=== PATIENT | male | born 1930 | race Asian ===

== ENCOUNTER 2019-09-01 15:24 | Inpatient (IN) | payer MEDICARE, OTHER ==
[~2019-09-01] VITALS: Ht 165.1 cm; Wt 70.8 kg
--- NOTE | 2019-09-01 15:35 | NUR ---
MICHELLE FROM HOME TO ER BED 12. ALERT AND AWAKE. MONGOLIAN SPEAKING. ABLE TO FOLLOW SIMPLE COMMAND. BROUGHT IN FOR MEDICAL CLEARANCE FOR ADMISSION FOR GPS. PER 5150 HOLD, PT IS DANGER TO SELF WITH SUICIDAL THOUGHT W/ PLAN TO SHOOT HIMSELF. PT IS REPORTED TO BE DEPRESSED. PT IS GOWNED AND BELONGINGS KEPT IN LOCKER. 1:1 SITTER AT BEDSIDE. MD WAS AT THE BEDSIDE FOR EVAL ORDERS RECEIVED NOTED AND CARRIED OUT
--- NOTE | 2019-09-01 15:37 | NUR ---
GREASE MAN AT BEDSIDE FOR EVAL
--- NOTE | 2019-09-01 15:40 | NUR ---
URINE COLLECTED AND SENT TO LAB
[2019-09-01 15:46] LABS: BASOPHILS % (AUTO) 0.3 % (0.0-2.0); HEMATOCRIT 35 % (39-51); HEMOGLOBIN 11.8 g/dL (13.5-17.5); LYMPHOCYTES # (AUTO) 2.2 /CMM (0.8-4.8); LYMPHOCYTES % (AUTO) 25.1 % (20.0-44.0); MEAN CORPUSCULAR HGB CONC 34 g/dl (31.0-36.0); MEAN CORPUSCULAR VOLUME 92 fL (80-96); MONOCYTES # (AUTO) 0.7 /CMM (0.1-1.30); MONOCYTES % (AUTO) 8.2 % (2.0-12.0); NEUTROPHILS # (AUTO) 5.4 /CMM (1.8-8.9); NEUTROPHILS % (AUTO) 62.4 % (43.0-81.0); PLATELET COUNT (AUTO) 295 /CMM (150-450); RED BLOOD CELL COUNT(AUTO) 3.77 MIL/uL (4.5-6.0); WHITE BLOOD COUNT (AUTO) 8.7 K/uL (4.3-11.0)
[2019-09-01 15:52] LABS: APPEARANCE,URINE Clear (CLEAR); BILIRUBIN,URINE Negative (NEGATIVE); BLOOD, URINE Negative Ery/uL (NEGATIVE); COLOR,URINE Yellow (YELLOW); KETONES,URINE Negative (NEGATIVE); LEUKOCYTE ESTERASE ,URINE Negative (NEGATIVE); NITRITE, URINE Negative (NEGATIVE); PH,URINE 7.5 (5.0-8.0); PROTEIN,URINE Negative (NEGATIVE); UGLUCOSE Negative (NEGATIVE); UROBILINOGEN,URINE 0.2 EU/dL (0.2)
[2019-09-01 15:55] LABS: CALCIUM, SERUM 11.3 mg/dL (8.5-10.1); CARBON DIOXIDE 38 mmol/L (21-32); CHLORIDE 102 mmol/L (98-107); GLUCOSE 164 mg/dL (74-106); SODIUM SERUM 140 mmol/L (136-145); UREA NITROGEN, BLOOD 10 mg/dL (7-18)
[2019-09-01] MEDS ORDERED: POTASSIUM CHLORIDE 20 MEQ TAB.PRT.SR PO ONE ×2 (16:00→16:05)
[2019-09-01 16:06] LABS: ALANINE AMINOTRANSFERASE 13 U/L (12-78); ALBUMIN 2.7 g/dL (3.4-5.0); ALCOHOL, BLOOD < 3 mg/dL (0-0); ALKALINE PHOSPHATASE 96 U/L (46-116); ASPARTATE AMINOTRANSFERASE 14 U/L (15-37); BILIRUBIN,DIRECT 0.2 mg/dL (0.0-0.2); BILIRUBIN,TOTAL 0.4 mg/dL (0.2-1.0); TOTAL PROTEIN, SERUM 6.7 g/dL (6.4-8.2)
[2019-09-01 16:07] LABS: ACETAMINOPHEN < 2 ug/ml (10-30); SALICYLATE < 2.8 mg/dL (2.8-20.0)
--- NOTE | 2019-09-01 17:08 | NUR ---
COVID SWAB DONE AND SENT TO LAB
--- NOTE | 2019-09-01 18:18 | NUR ---
GOT BED 220-B
--- NOTE | 2019-09-01 18:35 | NUR ---
REPORT GIVEN TO SAIDA ACUÑA FROM GPS FOR THIEN
--- NOTE | 2019-09-01 18:39 | NUR ---
PT TRANPORTED TO UNIT ON [facility] WITH EMT AT BEDSIDE. PT IS IN STABLE CONDITION. NAD NOTED.
--- NOTE | 2019-09-01 19:00 | NUR ---
GPS MOBILE PAINT SPECIALIST NOTES: ADMITTED AN 88YO AZERI SPEAKING MALE WHO INITIALLY CAME FROM HOME AND WAS BROUGHT INTO [facility] ER. PATIENT IS ON A HOLD FOR FOR DANGER TO SELF.PER HOLD PATIENT WAS MADE SUICIDAL THREATS WITH A PLAN TO SHOOT HIMSELF WITH HIS OWN GUN. PATIIENT WILL BE UNDER THE CARE OF DR. LOPEZ AND LUIS AYALA, TRISHA FOR THE [facility] MEDICAL GROUPD AND PSYCH AND MEDICAL DOCTORS RESPECTIVELY. PATIENT WAS BROUGHT INTO THE UNIT DURING CHANGE OF SHIFT. UPON FACE TO FACE ASSESSMENT,PATIENT PRESENTS ALERT AND ORIENTED X1, SPEAKS MOSTLY AZERI AND LESS OF THE SLOVAK LANGUAGE, APPEARS CONFUSED, DISORGANIZED , UNKEMPT, DISHEVELED, APPEARS LOST. REALITY ORIENTATION DONE. SKIN AND BODY ASSESSMENT DONE. NO OPEN WOUND OR SKIN ISSUES NOTED THIS TIME. GUIDE TO PRESCRIPTION MEDICATIONS BOOK AND PATIENT'S RIGHTS HANDBOOK PROVIDED. Q15 MIN CHECKS INITIATED. CARE PLAN SPECIFIC TO PATIENT'S NEEDS THE FORMULATED. PROVIDED PATIENT WITH SOME SNACKS TOLERATED. WILL MONITOR PATIENT FOR MOOD, SAFETY AND BEHAVIOR WHILE INPATIENT.
[2019-09-01] MEDS ORDERED: ACETAMINOPHEN 325 MG TABLET PO PRN (19:30)
[2019-09-01] MEDS ORDERED: MAG HYDROX/AL HYDROX/SIMETH 30 ML UDC PO PRN (19:30)
[2019-09-01] MEDS ORDERED: LORAZEPAM 0.5 MG TABLET PO PRN (19:30)
[2019-09-01] MEDS ORDERED: MAGNESIUM HYDROXIDE 30 ML UDC PO PRN (19:30)
[2019-09-01] MEDS ORDERED: ATOR40TA PO (19:46)
[2019-09-01] MEDS ORDERED: GABA-532 PO (19:47)
[2019-09-01] MEDS ORDERED: BLOOD SUGAR DIAGNOSTIC 1 EACH STRIP IN ONE (20:30)
[2019-09-01 21:00] VITALS: BP 157/65
[2019-09-01 21:30] VITALS: BP 137/72
[2019-09-02] MEDS: TEMAZEPAM 7.5 MG CAPSULE PO PRN ×2 (00:30→23:46)
[2019-09-02 01:55] LABS: CHOLESTEROL 145 mg/dL (<200); HDL CHOLESTEROL 41 mg/dL (40-60); LDL 96 mg/dL (0-99); TRIGLYCERIDES 83 mg/dL (30-150)
[2019-09-02 01:56] LABS: FREE PSA 0.87 ng/mL (0.00-45); PROSTATE SPECIFIC ANTIGEN SCR 3.28 ng/mL (0.00-4.00)
[2019-09-02 07:15] LABS: BASOPHILS % (AUTO) 0.3 % (0.0-2.0); EOSINOPHILS % (AUTO) 0.9 % (0.0-6.0); HEMATOCRIT 37 % (39-51); HEMOGLOBIN 12.6 g/dL (13.5-17.5); LYMPHOCYTES # (AUTO) 2.2 /CMM (0.8-4.8); LYMPHOCYTES % (AUTO) 21.3 % (20.0-44.0); MEAN CORPUSCULAR HGB CONC 34 g/dl (31.0-36.0); MEAN CORPUSCULAR VOLUME 92 fL (80-96); MONOCYTES # (AUTO) 0.8 /CMM (0.1-1.30); MONOCYTES % (AUTO) 7.3 % (2.0-12.0); NEUTROPHILS # (AUTO) 7.2 /CMM (1.8-8.9); NEUTROPHILS % (AUTO) 70.2 % (43.0-81.0); PLATELET COUNT (AUTO) 365 /CMM (150-450); RED BLOOD CELL COUNT(AUTO) 4.05 MIL/uL (4.5-6.0); WHITE BLOOD COUNT (AUTO) 10.3 K/uL (4.3-11.0)
[2019-09-02 08:00] VITALS: BP 120/67
[2019-09-02 08:07] LABS: CALCIUM, SERUM 12.3 mg/dL (8.5-10.1); CREATININE 1.2 mg/dL (0.6-1.3)
[2019-09-02] MEDS: SERTRALINE HCL 25 MG TABLET PO SCH (12:55)
[2019-09-02] MEDS: POTASSIUM CHLORIDE 10 MEQ TABLET.SA PO SCH ×2 (12:55→15:40)
--- NOTE | 2019-09-02 13:43 | NUR ---
Social Work Initial Discharge Plan: Patient currently resides alone at [address] [address]. Per pt's Day Care Center [facility] ([phone]) stated that pt is part of there program and that a nurse follows up with pt 2-3 times. This flex o writer operator attempted to contact pt's son Loreto Byrd ([phone]) was unavailable. Per pt's nurse from the day care center, she stated that they are unable to reach pt's son.
--- NOTE | 2019-09-02 13:43 | NUR ---
Social Work Note: wafer production worker contacted patient's Day Care Center [facility] ([phone]) to gather collateral. Per Sherman RN, she stated that pt does not have any family members here and all of his family is in [place]. Per Sherman, she stated that pt has one son Loreto Byrd ([phone]) and stated that they are unable to reach him. Per Sherman, she stated that pt resides alone and that they follow up with pt 2-3 times a day to check on his status. Per Sherman, she stated that pt does not have DPOA or Conservatorship.
--- NOTE | 2019-09-02 13:43 | NUR ---
Social Work Family Contact: neon sign worker attempted to contact patient's son Loreto Byrd ([phone]) and was unavailable to gather collateral.
--- NOTE | 2019-09-02 15:30 | NUR ---
GROUP NOTE: SW invited pt to join group. Pt refused to join and wanted to sleep.
[2019-09-02 16:00] VITALS: BP 118/69
--- NOTE | 2019-09-02 16:50 | NUR ---
GPS RN NOTES Obtained urine specimen at this time. Notified lab to leaf size picker specimen.
[2019-09-02 17:20] LABS: APPEARANCE,URINE CLEAR (CLEAR); BILIRUBIN,URINE NEGATIVE (NEGATIVE); BLOOD, URINE NEGATIVE Ery/uL (NEGATIVE); COLOR,URINE YELLOW (YELLOW); KETONES,URINE NEGATIVE (NEGATIVE); LEUKOCYTE ESTERASE ,URINE NEGATIVE (NEGATIVE); NITRITE, URINE NEGATIVE (NEGATIVE); PROTEIN,URINE NEGATIVE (NEGATIVE); UGLUCOSE NEGATIVE (NEGATIVE); UROBILINOGEN,URINE 0.2 EU/dL (0.2)
[2019-09-02 17:27] LABS: CREATININE, URINE 107.2 MG/DL (30.0-125.0); URINE TOTAL PROTEIN 44.4 mg/dL (0-11.9)
[2019-09-02 18:50] LABS: EOSINOPHIL,URINE None Seen
[2019-09-02 20:02] VITALS: BP 129/69
[2019-09-02] MEDS: ATORVASTATIN 40 MG TABLET PO SCH (22:13)
--- NOTE | 2019-09-02 23:49 | NUR ---
RN NOTES: INSOMNIA NOTED PT. UNABLE TO SLEEP , RESTORIL 7.5 MG PO PRN GIVEN ORDERS, WILL CONTINUE TO MONITOR.
--- NOTE | 2019-09-03 07:05 | NUR ---
RN NOTES : NO CHANGE OF CONDITION NOTED , AND PT. RESTING WELL, PT. WAS TRYING TO CLIMBING OUT THE BED AT THIS TIME , AND TRANSFER TO THE SOFYA CHAIR, WILL CONTINUITY WITH CARE.
[2019-09-03 08:00] VITALS: BP 142/67
[2019-09-03 11:34] LABS: BASOPHILS % (AUTO) 0.2 % (0.0-2.0); EOSINOPHILS % (AUTO) 2.3 % (0.0-6.0); HEMATOCRIT 33 % (39-51); HEMOGLOBIN 11.1 g/dL (13.5-17.5); LYMPHOCYTES # (AUTO) 1.6 /CMM (0.8-4.8); LYMPHOCYTES % (AUTO) 16.9 % (20.0-44.0); MEAN CORPUSCULAR HGB CONC 34 g/dl (31.0-36.0); MEAN CORPUSCULAR VOLUME 93 fL (80-96); MONOCYTES # (AUTO) 0.5 /CMM (0.1-1.30); MONOCYTES % (AUTO) 5.4 % (2.0-12.0); NEUTROPHILS # (AUTO) 6.9 /CMM (1.8-8.9); NEUTROPHILS % (AUTO) 75.2 % (43.0-81.0); PLATELET COUNT (AUTO) 272 /CMM (150-450); RED BLOOD CELL COUNT(AUTO) 3.52 MIL/uL (4.5-6.0); WHITE BLOOD COUNT (AUTO) 9.2 K/uL (4.3-11.0)
[2019-09-03 11:49] LABS: ALBUMIN 2.7 g/dL (3.4-5.0); BILIRUBIN,TOTAL 0.6 mg/dL (0.2-1.0); CREATININE 1.2 mg/dL (0.6-1.3); MAGNESIUM 2.4 mg/dL (1.8-2.4); PHOSPHORUS 3.6 mg/dL (2.5-4.9); POTASSIUM 3.7 mmol/L (3.5-5.1); TOTAL PROTEIN, SERUM 6.2 g/dL (6.4-8.2)
[2019-09-03] MEDS: SERTRALINE HCL 25 MG TABLET PO SCH (12:12)
[2019-09-03] MEDS: GABAPENTIN 100 MG CAPSULE PO SCH ×2 (12:12→16:40)
[2019-09-03 16:00] VITALS: BP 131/74
[2019-09-03 20:44] VITALS: BP 139/93
[2019-09-03] MEDS: ATORVASTATIN 40 MG TABLET PO SCH (21:26)
[2019-09-04] MEDS ORDERED: Z GUARD REMEDY 2 OZ OINT TP PRN
--- NOTE | 2019-09-04 00:20 | NUR ---
GPS RN NOTES: NURSE ASSIGNED REPORTED TO BALANCER SCALE OF PATIENT'S SKIN CONDITION IN THE SACRAL AREA. NOTIFIED DIRECTOR OF FINANCIAL AID ERROL GONZÁLES, NOTIFIED LUIS AYALA NP FOR [facility]. WILL NOTIFY ELOISA ZAMUDIO IN THE MORNING. WOUND CARE CONSULT TRIGGERED. MEPILEX DRESSING APPLIED. WILL CONTINUE TO MONITOR PATIENT WHILE IN HOUSE.
[2019-09-04] MEDS: Z GUARD REMEDY 2 OZ OINT TP SCH (07:43)
[2019-09-04] MEDS: GABAPENTIN 100 MG CAPSULE PO SCH ×3 (07:43→16:40)
[2019-09-04 08:00] VITALS: BP 106/52
[2019-09-04] MEDS: SERTRALINE HCL 25 MG TABLET PO SCH (12:10)
[2019-09-04 16:00] VITALS: BP 143/78
[2019-09-04 20:25] VITALS: BP 144/72
[2019-09-04] MEDS: ATORVASTATIN 40 MG TABLET PO SCH (21:25)
[2019-09-05 07:25] LABS: BASOPHILS % (AUTO) 0.2 % (0.0-2.0); EOSINOPHILS % (AUTO) 1.9 % (0.0-6.0); HEMATOCRIT 32 % (39-51); LYMPHOCYTES # (AUTO) 1.3 /CMM (0.8-4.8); LYMPHOCYTES % (AUTO) 12.8 % (20.0-44.0); MEAN CORPUSCULAR HGB CONC 34 g/dl (31.0-36.0); MEAN CORPUSCULAR VOLUME 93 fL (80-96); MONOCYTES # (AUTO) 0.6 /CMM (0.1-1.30); MONOCYTES % (AUTO) 5.7 % (2.0-12.0); NEUTROPHILS % (AUTO) 79.4 % (43.0-81.0); PLATELET COUNT (AUTO) 293 /CMM (150-450); RED BLOOD CELL COUNT(AUTO) 3.49 MIL/uL (4.5-6.0); WHITE BLOOD COUNT (AUTO) 10.1 K/uL (4.3-11.0)
[2019-09-05 07:30] LABS: THYROID STIMULATING HORMONE 7.367 uIU/mL (0.358-3.74)
[2019-09-05 07:40] LABS: ALBUMIN 2.7 g/dL (3.4-5.0); BILIRUBIN,TOTAL 0.9 mg/dL (0.2-1.0); CALCIUM, SERUM 12.3 mg/dL (8.5-10.1); CREATININE 1.2 mg/dL (0.6-1.3); MAGNESIUM 2.6 mg/dL (1.8-2.4); POTASSIUM 3.2 mmol/L (3.5-5.1); TOTAL PROTEIN, SERUM 6.6 g/dL (6.4-8.2)
[2019-09-05 08:00] VITALS: BP 108/59
[2019-09-05] MEDS: GABAPENTIN 100 MG CAPSULE PO SCH ×2 (08:25→12:30)
[2019-09-05] MEDS: Z GUARD REMEDY 2 OZ OINT TP SCH (08:45)
--- NOTE | 2019-09-05 09:00 | NUR ---
RN NOTE- PT ASLEEP THOUGH AWAKENS EASILY. ORIENTED TO SELF. CONFUSED THIN PO INTAKE POOR MED COMPLIANT THIS AM. TURNED AND REPOSITIONED FREQUENTLY TO PREVENT BREAKDOWN
[2019-09-05] MEDS ORDERED: POTASSIUM CHLORIDE 20 MEQ TAB.PRT.SR PO ONE (11:30)
[2019-09-05] MEDS: SERTRALINE HCL 25 MG TABLET PO SCH (12:30)
--- NOTE | 2019-09-05 14:16 | NUR ---
Social Work Transfer: Patient is transferred to Medr unit due to Hypercalcemia. Dr. Ag will continue the hold. Patient lives at [address] [facility] [address], [place] [address]. Patient has one son Loreto Byrd ([phone]) this news writer was unable to reach him and he has not called back. Patient attends to a Day Care Center called [facility] ([phone]) who stated that the son does not belt picker phone calls. Patient's RN Sherman from [facility] ([phone]) follows-up with patient. Patient does not have any other family members. Patient might require a SNF.
--- NOTE | 2019-09-05 14:20 | NUR ---
RN DC NOTE- PT DC TO [facility] AT THIS TIME VIA [facility]CR AND ACCOMPANIED BY THIS RN. DX- HYPERCALCEMIA. PT ALERT ORIENTED TO SELF ONLY, CONFUSED, FLAT AFFECT CALM AND WITHDRAWN. PT MED COMPLIANT AND PO INTAKE HAS BEEN POOR-FAIR DEPENDING ON MEAL. SLEEPING HRS HAVE BEEN POOR AT 4-5 HRS NOC. ERYTHEMA TO SACRAL AREA, WOUND CARE CONSULT PENDING, POSITIONED PT FREQUENTLY FOR COMFORT. VS STABLE. VALUABLES TAKEN TO [address] LOPEZ
--- NOTE | 2019-09-05 14:20 | NUR ---
SAIAD DC NOTE-M
[2019-09-05] MEDS ORDERED: SERTRALINE HCL 25 MG TABLET PO SCH (17:00)
[2019-09-06 06:35] LABS: *SPE A/G RATIO 0.9 (0.7-1.7); *SPE ALBUMIN 2.7 g/dL (2.9-4.4); *SPE ALPHA-1-GLOBULIN 0.3 g/dL (0.0-0.4); *SPE ALPHA-2-GLOBULIN 0.6 g/dL (0.4-1.0); *SPE BETA GLOBULIN 0.8 g/dL (0.7-1.3); *SPE GLOBULIN, TOTAL 2.9 g/dL (2.2-3.9); *SPE M-SPIKE Not Observed g/dL (Not Observed); *SPEGAMMA GLOBULIN 1.3 g/dL (0.4-1.8)
[2019-09-08] MEDS ORDERED: CLOT15CR35 TP (14:42)
[2019-09-08] MEDS ORDERED: SERT25TA5 PO (14:42)
== END 2019-09-05 13:47 | disposition short-term general hospital (02) | DRG 885 ==
LOC: ER 15:29 → GPS 18:32
PROVIDERS: ADMIT Psychiatry & Neurology Psychosomatic Medicine
DX: F33.2 Major depressive disorder, recurrent severe without psychotic features (principal); E44.0 Moderate protein-calorie malnutrition; R45.851 Suicidal ideations; G93.40 Encephalopathy, unspecified; E87.6 Hypokalemia; E83.52 Hypercalcemia; E03.9 Hypothyroidism, unspecified; I10 Essential (primary) hypertension; R73.9 Hyperglycemia, unspecified
CPT/HCPCS: 36415; 80048-TC; 80053-TC; 80061-TC; 80076-TC; 80305; 81000-TC; 82306; 82570-TC; 82962-TC; 83735-TC; 83970; 84100-TC; 84153-TC; 84154-TC; 84155; 84155-TC; 84165; 84300-TC; 84439-TC; 84443-TC; 84481; 85025-TC; 87081-TC; 97116-TC; 97530-TC; G0480

== ENCOUNTER 2019-09-05 13:32 | Inpatient (IN) | payer MEDICARE, OTHER ==
[~2019-09-05] VITALS: Ht 165.1 cm; Wt 49.9 kg
[~2019-09-05 13:32] MED LIST: ATOR40TA PO; GABA-532 PO
--- NOTE | 2019-09-05 14:20 | NUR ---
Social Work Transfer: Patient is transferred to Medr unit due to Hypercalcemia. Dr. Ag will continue the hold. Patient lives at [address] [facility] [address], [place] [address]. Patient has one son Loreto Byrd ([phone]) this tech writer was unable to reach him and he has not called back. Patient attends to a Day Care Center called [facility] ([phone]) who stated that the son does not burr picker phone calls. Patient's RN Sherman from [facility] ([phone]) follows-up with patient. Patient does not have any other family members. Patient might require a SNF.
--- NOTE | 2019-09-05 15:00 | NUR ---
RECEIVED PATIENT FROM [facility] GPS. LEONIDES KEREN STABLE CONDITION. A/OX1-2, RESPONSIVE, AMHARIC SPEAKING, UNDERSTAND LITTLE SINGAPOREAN. NOT IN DAMIÁN FORM OF DISTRESS. NO SOB. DENIED PAIN OR DISCOMFORT AT THIS TIME. SITUATED PATIENT IN THE ROOM. SITTER AT BEDSIDE. VSS. SAFETY MEASURES IN PLACE. BED IN LOW/LOCKED PSOTIION, SIDERAILS UPX2, CALL LIGHT IN REACH. WILL MONITOR ACCORDINGLY.
[2019-09-05 15:30] VITALS: BP 94/57
--- NOTE | 2019-09-05 16:51 | NUR ---
mrsa swab right nares collected and called lab for p/u, spoke with carlos from lab.
--- NOTE | 2019-09-05 16:54 | NUR ---
IV ACCESS INSERTED AT RIGHT FA GAUGE 22 INTACT AND PATENT. PATIENT TOLERATED WELL.
[2019-09-05] MEDS ORDERED: Z GUARD REMEDY 2 OZ OINT TP PRN (17:30)
[2019-09-05] MEDS ORDERED: MAGNESIUM HYDROXIDE 30 ML UDC PO PRN (17:30)
[2019-09-05] MEDS ORDERED: ACETAMINOPHEN 325 MG TABLET PO PRN (17:30)
[2019-09-05] MEDS ORDERED: MAG HYDROX/AL HYDROX/SIMETH 30 ML UDC PO PRN (17:30)
[2019-09-05] MEDS ORDERED: ZOLPIDEM TARTRATE 5 MG TABLET PO PRN (17:30)
[2019-09-05] MEDS ORDERED: ONDANSETRON HCL/PF 4 MG/2 ML VIAL IVP PRN (17:30)
[2019-09-05] MEDS: ENOXAPARIN SODIUM 30 MG/0.3 ML DISP.SYRIN SQ SCH (18:22)
[2019-09-05] MEDS: IV D5/ 0.9% NACL 1,000 ML IV PRN (18:24)
--- NOTE | 2019-09-05 19:00 | NUR ---
RN OPENING NOTES Received patient asleep on bed, on RA, no s/sx of distress noted. With sitter at bedside. IVF infusing as ordered. Will continue to monitor accordingly.
--- NOTE | 2019-09-05 19:20 | NUR ---
RN NOTES Received a call form To of Pharmacy. Medication Pamidronate (Aredia) is not available. Ordering , Dr. Baumann notified. Addendum: 09/05/19 at 2052 [address] BLAISE PAGE RN Dr. Baumann notified, per pharmacy, spoke to To, Pamidronate (Aredia) will be available a day after tomorrow, no available alternative for peripheral route at this time. Informed Dr. Baumann, NNO.
--- NOTE | 2019-09-05 19:25 | NUR ---
RN CLOSING NOTES PATIENT IN STABLE CONDITION. NOT IN ANY FORM OF DISTRESS. SITTER AT BEDSIDE. SAFETY MEASURES IN PLACE. DENIED SI/HI. BED IN LOW/LOCKED POSITION. SIDERAILS UPX2, CALL LIGHT IN REACH ENDORSED TO SAIDA WELSH FOR THIEN.
[2019-09-05] MEDS ORDERED: PAMIDRONATE 90 MG in IV NS 0.9% 500 ML IV ONE (19:30)
[2019-09-05 20:00] VITALS: BP 138/66
[2019-09-05] MEDS: ATORVASTATIN 40 MG TABLET PO SCH (22:09)
[2019-09-06] MEDS: QUETIAPINE FUMARATE 25 MG TABLET PO ONE ×2 (01:30→01:40)
[2019-09-06] MEDS: HYDROCODONE/APAP 5/325MG 1 EACH TABLET PO PRN ×2 (01:40→10:41)
[2019-09-06] MEDS ORDERED: LORAZEPAM INJ 2 MG/ML VIAL IV ONE (02:00)
--- NOTE | 2019-09-06 02:05 | NUR ---
RN NOTES Pt noted severly agitated and restless, getting off the bed, unable to obey simple commands. Pt refused any PO intake, spit out the oral meds given as ordered. calculus tutor MD notified, 1 mg Ativan ordered received. Given as ordered. Sitter at bedside. Will continue to monitor accordingly.
[2019-09-06] MEDS: IV D5/ 0.9% NACL 1,000 ML IV PRN ×2 (04:06→16:28)
--- NOTE | 2019-09-06 06:34 | NUR ---
RN CLOSING NOTES Pt asleep on bed. No complaints or s/sx of distress noted at this time. Pt was able to be calmed with IV Ativan as ordered. All nursing needs attended. Due meds given as ordered. Kept on bed clean, dry and comfortable. Sitter at bedside. Endorsed.
--- NOTE | 2019-09-06 07:33 | NUR ---
MS/RN OPENING NOTES RECEIVED PATIENT ON BED AWAKE AND ALERT X 1-2. NO SOB NOTED. NO COMPLAINED OF PAIN THIS TIME. WILL CONTINUE TO MONITOR.
[2019-09-06 08:14] LABS: BASOPHILS % (AUTO) 0.1 % (0.0-2.0); EOSINOPHILS % (AUTO) 0.3 % (0.0-6.0); HEMATOCRIT 32 % (39-51); HEMOGLOBIN 10.7 g/dL (13.5-17.5); LYMPHOCYTES % (AUTO) 9.1 % (20.0-44.0); MEAN CORPUSCULAR HGB CONC 34 g/dl (31.0-36.0); MEAN CORPUSCULAR VOLUME 93 fL (80-96); MONOCYTES # (AUTO) 0.7 /CMM (0.1-1.30); MONOCYTES % (AUTO) 6.9 % (2.0-12.0); NEUTROPHILS % (AUTO) 83.6 % (43.0-81.0); PLATELET COUNT (AUTO) 315 /CMM (150-450); RED BLOOD CELL COUNT(AUTO) 3.39 MIL/uL (4.5-6.0); WHITE BLOOD COUNT (AUTO) 10.7 K/uL (4.3-11.0)
[2019-09-06 08:16] LABS: CALCIUM, SERUM 11.3 mg/dL (8.5-10.1); MAGNESIUM 2.1 mg/dL (1.8-2.4); PHOSPHORUS 2.8 mg/dL (2.5-4.9); POTASSIUM 3.6 mmol/L (3.5-5.1)
[2019-09-06] MEDS: GABAPENTIN 100 MG CAPSULE PO SCH ×3 (08:40→17:14)
--- NOTE | 2019-09-06 08:50 | NUR ---
MS/RN NOTES PATIENT COMPLAINED OF PAIN AND ANXIETY. TYLENOL 650 MG P.O. AND ATIVAN 0.5 MG P.O WAS GIVEN. WILL CONTINUE TO MONITOR.
--- NOTE | 2019-09-06 09:40 | NUR ---
WOUND CARE CONSULT: PT PRESENTS WITH SACRAL SCAR WITH CALLUS AND RASH/REDNESS TO LOWER BUTTOCKS AND PERINEUM, PRESENT ON ADMISSION. RECOMMENDATIONS MADE FOR SKIN PROTECTION. DISCUSSED WITH NURSING STAFF. PT IS INCONTINENT. SITTER AT BEDSIDE. Addendum: 09/06/19 at 0942 by ERICKA CHAPARRO WNDNU Amended: Links added.
--- NOTE | 2019-09-06 10:34 | NUR ---
MS/RN NOTES PATIENT WITH SIGN AND SYMPTOM OF PAIN NOTED. PATIENT WITH GRIMACE FACE AND RESTLESS. NORCO 5/325MG P.O. 1 TAB WAS GIVEN WILL CONTINUE TO MONITOR.
--- NOTE | 2019-09-06 11:07 | NUR ---
MS/RN NOTES DR. LOPEZ ORDER ATIVAN 0.25 MG P.O. EVERY 6 HOURS PRN, ATIVAN 0.25 MG IV EVERY 6 HOURS PRN AND ENSURE IF THE MD IS OKAY WITH ENSURE. NOTED AND CARRIED OUT.
[2019-09-06] MEDS ORDERED: LORAZEPAM 0.5 MG TABLET PO PRN (11:30)
[2019-09-06] MEDS ORDERED: LORAZEPAM INJ 2 MG/ML VIAL IV PRN (11:30)
[2019-09-06] MEDS: ENSURE ENLIVE 237 ML LIQUID (VANILLA) PO SCH (17:00)
[2019-09-06] MEDS: CLOTRIMAZOLE 1% 15 GM TUBE TP SCH (17:14)
[2019-09-06] MEDS: ENOXAPARIN SODIUM 30 MG/0.3 ML DISP.SYRIN SQ SCH (17:16)
[2019-09-06] MEDS: SERTRALINE HCL 25 MG TABLET PO SCH (17:44)
--- NOTE | 2019-09-06 19:27 | NUR ---
MS/RN CLOSING NOTES PATIENT IS ON BED. ALERT AND ORIENTED X1-2. PATIENT IN NO APPARENT RESPIRATORY DISTRESS NOTED. PATIENT NO SIGN AND SYMPTOM OF PAIN NOTED AT THIS TIME. IV ACCESS AT RIGHT FOREARM # 22G WITH IV FLUID OF D5NS 1 L AT 100 ML/HR ON AND INFUSING WELL. SEEN AND EXAMINED BY MD WITH ORDERS MADE AND CARRIED OUT. ALL DUE MEDICATION WAS GIVEN. SAFETY PRECAUTION WAS IN PLACED. BED IN LOWEST POSITION AND LOCKED. SIDE RAILS UP X2. CALL LIGHT WITHIN REACH. PATIENT DID NOT EAT WELL MD IS AWARE. WILL ENDORSED TO LAW LIBRARIAN FOR THIEN.
--- NOTE | 2019-09-06 19:30 | NUR ---
MS RN OPENING NOTE RECEIVED PATIENT IN BED. A/OX1 -2. SLOVAK SPEAKING. TOLERATING ROOM AIR. RESPIRATIONS ARE EVEN AND UNLABORED. NO S/S SOB NOTED. NO C/O PAIN AT THIS TIME. NO SI IDEATION AT THIS TIME. SITTER AT BEDSIDE. IN NO APPARENT DISTRESS. IV ACCESS IN RFA#22 RUNNING D5NS@100ML/HR. CONDOM CATH IS PRESENT AND DRAINING TO GRAVITY. BED IS LOW AND LOCKED, HOB ELEVATED IN SEMI FOWLERS, SIDE RIALS UP X2. CALL LIGHT WITHIN REACH. WILL CONTINUE TO MONITOR.
[2019-09-06 20:00] VITALS: BP 94/51
[2019-09-06] MEDS: ATORVASTATIN 40 MG TABLET PO SCH (21:33)
[2019-09-07] MEDS: IV D5/ 0.9% NACL 1,000 ML IV PRN (05:09)
--- NOTE | 2019-09-07 07:00 | NUR ---
MS RN CLOSING NOTE PATIENT IN BED. A/OX1 -2. REMAINS TOLERATING ROOM AIR. RESPIRATIONS ARE EVEN AND UNLABORED. NO S/S PAIN T/O SHIFT. NO SI IDEATION T/O SHIFT. SITTER REMAINS AT BEDSIDE. NO DISTRESS. IV ACCESS MAINTAINED IN RFA#22 RUNNING D5NS@100ML/HR. CONDOM CATH IS MAINTAINED AND DRAINING TO GRAVITY. BED REMAINS LOW AND LOCKED, HOB ELEVATED IN SEMI FOWLERS, SIDE RIALS UP X2. CALL LIGHT WITHIN REACH. WILL ENDORSE TO NEXT SHIFT.
--- NOTE | 2019-09-07 07:30 | NUR ---
MS/RN OPENING NOTES Patient resting in bed, A&O x 1, amharic speaking. Sitter at bedside. No complaints of pain/discomfort noted at this time. Breathing even and non-labored on room air, no SOB noted. No cardiac distress noted. IV access on RFA #22, patent and intact, and running D5NS @100 ml/hr. No infiltration/infection/bleeding noted on site. Condom catheter in place, draining yellow urine output well. Sensation from all peripheral extremities intact. Fall precautions maintained. Will continue current medical management.
[2019-09-07 07:33] LABS: IMMUNOGLOBULIN A, SERUM 222 mg/dL (61-437); IMMUNOGLOBULIN G, SERUM 1337 mg/dL (603-1613); IMMUNOGLOBULIN M, SERUM 67 mg/dL (15-143)
[2019-09-07 08:00] VITALS: BP 135/70
[2019-09-07] MEDS: ENSURE ENLIVE 237 ML LIQUID (VANILLA) PO SCH ×3 (08:28→16:42)
[2019-09-07] MEDS: GABAPENTIN 100 MG CAPSULE PO SCH ×3 (08:29→16:42)
[2019-09-07] MEDS: CLOTRIMAZOLE 1% 15 GM TUBE TP SCH ×2 (08:29→16:42)
[2019-09-07 09:40] LABS: MAGNESIUM 2.4 mg/dL (1.8-2.4); PHOSPHORUS 2.7 mg/dL (2.5-4.9); POTASSIUM 4.1 mmol/L (3.5-5.1)
[2019-09-07 09:41] LABS: BASOPHILS % (AUTO) 0.3 % (0.0-2.0); EOSINOPHILS % (AUTO) 0.8 % (0.0-6.0); HEMATOCRIT 34 % (39-51); HEMOGLOBIN 11.5 g/dL (13.5-17.5); LYMPHOCYTES # (AUTO) 1.2 /CMM (0.8-4.8); LYMPHOCYTES % (AUTO) 10.2 % (20.0-44.0); MEAN CORPUSCULAR HGB CONC 34 g/dl (31.0-36.0); MEAN CORPUSCULAR VOLUME 96 fL (80-96); MONOCYTES # (AUTO) 0.7 /CMM (0.1-1.30); MONOCYTES % (AUTO) 6.2 % (2.0-12.0); NEUTROPHILS # (AUTO) 9.9 /CMM (1.8-8.9); NEUTROPHILS % (AUTO) 82.5 % (43.0-81.0); PLATELET COUNT (AUTO) 271 /CMM (150-450); RED BLOOD CELL COUNT(AUTO) 3.56 MIL/uL (4.5-6.0); WHITE BLOOD COUNT (AUTO) 11.9 K/uL (4.3-11.0)
[2019-09-07] MEDS: SERTRALINE HCL 25 MG TABLET PO SCH ×2 (12:30→16:42)
[2019-09-07 16:00] VITALS: BP 155/71
[2019-09-07] MEDS ORDERED: ENSURE ENLIVE 237 ML LIQUID (VANILLA) PO SCH (17:00)
[2019-09-07] MEDS: ENOXAPARIN SODIUM 30 MG/0.3 ML DISP.SYRIN SQ SCH (17:05)
[2019-09-07] MEDS: IV 1/2NS 1000 ML 1,000 ML IV PRN (18:22)
--- NOTE | 2019-09-07 19:03 | NUR ---
MS/RN CLOSING NOTES Patient resting in bed, A&O x 1, yoruba speaking. Sitter at bedside. Denies any pain/discomfort noted at this time. Breathing even and non-labored on room air. No respiratory or cardiac distress noted. IV access on RFA #22, patent and intact, and running 1/2NS @75 ml/hr. No infiltration/infection/bleeding noted on site. Condom catheter in place, draining yellow urine output well, 900 cc output for the shift.. Sensation from all peripheral extremities intact. Fall precautions maintained. Was able to tolerate pureed diet and nectar thickened liquids, ate 50% during lunch, 75% during dinner. Will endorse to night shift supervisor nurse.
--- NOTE | 2019-09-07 19:44 | NUR ---
MS RN OPENING NOTES PATIENT RESTING IN BED, RESTLESS AND AGITATED. 1:1 SITTER PRESENT AT THE BEDSIDE FOR PATIENT SAFETY. ON 5250 HOLD; START DATE 09/01/19. A/OX 1-2; PRIMARY LANGUAGE IRISH. ON RA; NO S/S OF ACUTE RESPIRATORY DISTRESS; BREATHING IS EVEN AND UNLABORED. IV PRESENT ON FA, SIZE 22, INTACT & PATENT WITH 1/2 NS RUNNING AT 75 ML/HR. CONDOM CATH PRESENT AND DRAINING WELL. SAFETY MEASURES IN PLACE AND PATIENT'S NEEDS MET. BED LOCKED, ALARM ON, SIDE RAILS X3, CALL LIGHT WITHIN REACH. WILL CONTINUE TO MONITOR.
[2019-09-07 20:00] VITALS: BP 109/65
[2019-09-07] MEDS: ATORVASTATIN 40 MG TABLET PO SCH (21:50)
--- NOTE | 2019-09-08 06:32 | NUR ---
MS RN CLOSING NOTES PATIENT SLEEPING IN BED. 1:1 SITTER PRESENT AT THE BEDSIDE FOR PATIENT SAFETY. A/OX 1-2. ON RA; NO S/S OF ACUTE RESPIRATORY DISTRESS; BREATHING IS EVEN AND UNLABORED. IV PRESENT ON FA, SIZE 22, INTACT & PATENT WITH 1/2 NS RUNNING AT 75 ML/HR. CONDOM CATH PRESENT AND DRAINING WELL. SAFETY MEASURES IN PLACE AND PATIENT'S NEEDS MET. BED LOCKED, ALARM ON, SIDE RAILS X3, CALL LIGHT WITHIN REACH. WILL ENDORSE TO DAY SHIFT RN PLAN OF CARE.
[2019-09-08] MEDS: IV 1/2NS 1000 ML 1,000 ML IV PRN (06:37)
--- NOTE | 2019-09-08 07:30 | NUR ---
MS/RN OPENING NOTES Received patient resting in bed, moved to room 307-2. A&O x 1, malay speaking, sitter at bedside. No complaints of pain/discomfort noted at this time. Breathing even and non-labored on room air, no SOB noted. No cardiac distress noted. IV access on RFA #22, patent and intact, and running 1/2NS @75 ml/hr. No infiltration/infection/bleeding noted on site. Condom catheter in place, draining yellow urine output well. Sensation from all peripheral extremities intact. Fall precautions maintained. Will continue current plan of care.
[2019-09-08 07:32] LABS: BASOPHILS % (AUTO) 0.2 % (0.0-2.0); EOSINOPHILS % (AUTO) 0.9 % (0.0-6.0); HEMATOCRIT 33 % (39-51); LYMPHOCYTES # (AUTO) 0.9 /CMM (0.8-4.8); LYMPHOCYTES % (AUTO) 11.4 % (20.0-44.0); MEAN CORPUSCULAR HGB CONC 33 g/dl (31.0-36.0); MEAN CORPUSCULAR VOLUME 95 fL (80-96); MONOCYTES # (AUTO) 0.5 /CMM (0.1-1.30); MONOCYTES % (AUTO) 6.9 % (2.0-12.0); NEUTROPHILS # (AUTO) 6.3 /CMM (1.8-8.9); NEUTROPHILS % (AUTO) 80.6 % (43.0-81.0); PLATELET COUNT (AUTO) 258 /CMM (150-450); RED BLOOD CELL COUNT(AUTO) 3.47 MIL/uL (4.5-6.0); WHITE BLOOD COUNT (AUTO) 7.8 K/uL (4.3-11.0)
[2019-09-08 07:45] LABS: CALCIUM, SERUM 10.8 mg/dL (8.5-10.1); CREATININE 1.3 mg/dL (0.6-1.3); PHOSPHORUS 3.1 mg/dL (2.5-4.9); POTASSIUM 3.1 mmol/L (3.5-5.1)
[2019-09-08 08:00] VITALS: BP_SYST 136; BP_DIAS 60; BP_DIAS 64
[2019-09-08] MEDS: GABAPENTIN 100 MG CAPSULE PO SCH ×2 (08:10→12:06)
[2019-09-08] MEDS: ENSURE ENLIVE 237 ML LIQUID (VANILLA) PO SCH ×2 (08:10→12:07)
[2019-09-08] MEDS: CLOTRIMAZOLE 1% 15 GM TUBE TP SCH (08:11)
[2019-09-08 08:43] LABS: *SPE A/G RATIO 0.8 (0.7-1.7); *SPE ALBUMIN 2.7 g/dL (2.9-4.4); *SPE ALPHA-1-GLOBULIN 0.4 g/dL (0.0-0.4); *SPE ALPHA-2-GLOBULIN 0.8 g/dL (0.4-1.0); *SPE BETA GLOBULIN 0.9 g/dL (0.7-1.3); *SPE GLOBULIN, TOTAL 3.4 g/dL (2.2-3.9); *SPE M-SPIKE Not Observed g/dL (Not Observed); *SPEGAMMA GLOBULIN 1.3 g/dL (0.4-1.8)
[2019-09-08] MEDS: POTASSIUM CHLORIDE 20 MEQ TAB.PRT.SR PO SCH ×2 (11:14→12:06)
[2019-09-08] MEDS: SERTRALINE HCL 25 MG TABLET PO SCH (12:07)
--- NOTE | 2019-09-08 14:00 | NUR ---
MS/RN NOTES X-RAY stated they are not able to do CT because patient keeps moving and restless.
--- NOTE | 2019-09-08 14:37 | NUR ---
UNABLE TO DO CT CHEST ABD. PELVIS, PT. KEEPS ON MOVING, RN (JOHN) IS AWARE.
[2019-09-08] MEDS ORDERED: CLOT15CR35 TP (14:42)
[2019-09-08] MEDS ORDERED: SERT25TA5 PO (14:42)
[2019-09-08 15:43] VITALS: BP 147/79
--- NOTE | 2019-09-08 16:00 | NUR ---
MS/CDL TEAM TRUCK DRIVER NOTES Patient transferred safely to GPS in wheelchair along with belongings and hospitalization documentations. Patient remained stable, VSS, A&O x 1. No s/s of pain/discomfort noted. Breathing even and non-labored on RA, no SOB noted. No cardiac distress noted. IV access removed with catheter intact, placed clean dry dressing and put pressure. No bleeding/infiltration/infection noted on site. Photos of skin impairment taken, placed in chart. Sensation from all peripheral extremities intact. Explained all discharge instructions and plan of care to patient, despite being confused. Gave report to front office spec in GPS regarding patient's plan of care. She verbalized understanding.
== END 2019-09-08 17:00 | DRG 641 ==
LOC: MED 13:32
PROVIDERS: ATTEND Student in an Organized Health Care Education/Training Program
DX: E83.52 Hypercalcemia (principal); E44.0 Moderate protein-calorie malnutrition; Z68.1 Body mass index [BMI] 19.9 or less, adult; R45.851 Suicidal ideations; E87.0 Hyperosmolality and hypernatremia; E87.6 Hypokalemia; I10 Essential (primary) hypertension; F32.9 Major depressive disorder, single episode, unspecified; E03.9 Hypothyroidism, unspecified; R73.9 Hyperglycemia, unspecified; E67.3 Hypervitaminosis D; R13.10 Dysphagia, unspecified
CPT/HCPCS: 36415; 71045-TC; 80048-TC; 82232; 82310-TC; 82728-TC; 82784; 83540-TC; 83735-TC; 84100-TC; 84155; 84165; 85025-TC; 86334; 92526; 92611-TC; A4349; G0378; J1650; J2060; J2430; J3490; J7040; J7042

== ENCOUNTER 2019-09-08 16:49 | Inpatient (IN) | payer MEDICARE, OTHER ==
[~2019-09-08] VITALS: Ht 162.6 cm; Wt 49.9 kg
[~2019-09-08 16:49] MED LIST changes: +CLOT15CR35 TP; +SERT25TA5 PO
[2019-09-08] MEDS ORDERED: MAG HYDROX/AL HYDROX/SIMETH 30 ML UDC PO PRN (17:00)
[2019-09-08] MEDS ORDERED: ACETAMINOPHEN 325 MG TABLET PO PRN (17:00)
[2019-09-08] MEDS ORDERED: TEMAZEPAM 7.5 MG CAPSULE PO PRN (17:00)
[2019-09-08] MEDS ORDERED: MAGNESIUM HYDROXIDE 30 ML UDC PO PRN (17:00)
[2019-09-08 17:24] VITALS: BP 142/82
--- NOTE | 2019-09-08 17:42 | NUR ---
RN-CO: Notified Dr Ag regarding this admission. She gave her admitting orders but stated no to Temazepam.Noted.
--- NOTE | 2019-09-08 17:58 | NUR ---
SALESPERSON HEARING AIDS NOTE: PATIENT IS A 88 Y/O MALE, DIRECT ADMIT FROM MS. BROUGHT INTO GPS ON A 5150 HOLD FOR DTS/ GD. AT THIS TIME, PATIENT IS HAVING SI WITH NO PLAN, DENIES HI/VAH AT THIS TIME. PATIENT IS ALERT BUT VERY CONFUSED, UNABLE TO PROPERLY RESPOND TO QUESTIONS. PATIENT IS DEPRESSED, FEARFUL, WITHDRAWN BUT WILLING TO COOPERATE WITH PLAN OF CARE. PATIENT HAS AN OPEN WOUND ON SACRUM. WOUND CARE PICTURES ARE TAKEN AND PLACED IN CHART WITH WOUND CARE CONSULT, PT EVAL, AND DIETARY CONSULT TO ASSESS FOR MALNUTRITION. UNABLE TO UNDERSTAND WHAT PATIENT IS STATING AT THIS TIME. PATIENT IS MAKING INAUDIBLE SOUNDS. PATIENT HANDBOOK GIVEN WITH PATIENT'S RIGHT AND GUIDE TO PRESCRIPTIONS. VS TAKEN, CODE STATUS ORDERED, ALLERGIES DOCUMENTED. ASSESSMENTS COMPLETE. PATIENT TOO CONFUSED TO SIGN ADMISSION PACKET. VALUABLES TAKEN AND PLACED IN SAFE. DR LOPEZ AND JERRELL, GREEN END MAN BOTH AWARE OF ADMISSION WITH ADMITTING ORDERS IN PLACE AND NOTIFIED TO COMPLETE MED RECON. SAFETY MEASURES IMPLEMENTED, BED IN LOWEST POSITION, LOCKED, SIDE RAILS UP, CALL LIGHT WITHIN REACH. WILL CONTINUE TO MONITOR PATIENT FOR SAFETY AND BEHAVIOR PER GPS PROTOCOL.
[2019-09-08] MEDS ORDERED: Z GUARD REMEDY 2 OZ OINT TP PRN (18:00)
[2019-09-08] MEDS ORDERED: BLOOD SUGAR DIAGNOSTIC 1 EACH STRIP IN ONE (18:00)
[2019-09-08] MEDS ORDERED: TRAMADOL HCL 50 MG TABLET PO PRN (18:30)
[2019-09-08] MEDS: LORAZEPAM 0.5 MG TABLET PO PRN (19:47)
--- NOTE | 2019-09-08 19:48 | NUR ---
GPS-RN NOTE: ANXIETY PATIENT IS ANXIOUS AND RESTLESS. ADMINISTERED ATIVAN MG PO ORDERED. WILL CONTINUE TO MONITOR FOR SAFETY AND BEHAVIOR.
[2019-09-08 20:11] VITALS: BP 150/87
[2019-09-08 20:23] VITALS: BP 107/63
[2019-09-08] MEDS: ATORVASTATIN 40 MG TABLET PO SCH (21:11)
[2019-09-09 07:16] LABS: ALBUMIN 2.3 g/dL (3.4-5.0); CALCIUM, SERUM 11.7 mg/dL (8.5-10.1); CREATININE 1.3 mg/dL (0.6-1.3); TOTAL PROTEIN, SERUM 6.1 g/dL (6.4-8.2)
--- NOTE | 2019-09-09 07:30 | NUR ---
GPS/RN-NOTES RECEIVED PATIENT SLEEPING IN BED WITH BREATHING EVEN AND NONLABORED EASILY AROUSE.CALM WITH CONFUSION ALERT TO NAME ONLY. NO ACUTE DISTRESS NOTED.ALL NEEDS ATTENDED AND ANTICIPATED.WILL CONT. MONITORING FOR SAFETY AND BEHAVIOR.
[2019-09-09 07:47] LABS: CHOLESTEROL 110 mg/dL (<200); HDL CHOLESTEROL 44 mg/dL (40-60); LDL 55 mg/dL (0-99); TRIGLYCERIDES 49 mg/dL (30-150)
--- NOTE | 2019-09-09 07:56 | NUR ---
GPS/RN-NOTES DNP HEATHER MORGAN MADE AWARE OF PT. POTASSIUM LEVEL OF 3.0 AND SODIUM LEVEL OF 150 TODAY. STILL AWAITING FOR CALL BACK.
[2019-09-09 08:00] VITALS: BP 141/72
[2019-09-09] MEDS ORDERED: POTASSIUM CHLORIDE 20 MEQ TAB.PRT.SR PO SCH (09:30)
--- NOTE | 2019-09-09 09:33 | NUR ---
GPS/RN-NOTES RECEIVED CALL BACK FROM AGNIESZKA MORGAN STATED "PHARMACY WILL REPLACE POTASSIUM".
[2019-09-09] MEDS: POTASSIUM CHLORIDE 20 MEQ POWDER PACKET PO SCH ×3 (10:08→12:13)
[2019-09-09] MEDS: ENSURE ENLIVE CHOC 237 ML CAN PO SCH ×2 (10:42→16:47)
[2019-09-09] MEDS: SERTRALINE HCL 25 MG TABLET PO SCH ×2 (12:13→16:40)
[2019-09-09] MEDS: CLOTRIMAZOLE 1% 15 GM TUBE TP SCH ×2 (12:13→16:41)
--- NOTE | 2019-09-09 13:50 | NUR ---
Social Work Attestation Note: I, Melita COUCH, attest to the accuracy of the psychosocial assessment done on this patient by Teresa COUCH on 09/02/2019. On the admissions for 09/02/2019, [facility] for danger to self, due to patient making suicidal threats with a plan to shoot himself. Patient was depressed and admitted to persistent and intrusive suicidal thoughts every two days with a plan to shoot himself with a gun. On 09/05/19, patient was admitted to the medical inpatient unit for Hypercalcemia. Patient was medically cleared and transferred back to [facility] on 09/08/19, now on a 5250 hold for danger to self and grave disability. Patient remains disorganized, withdrawn, unable to properly respond to questions. Patient remains depressed but currently denies a plan to harm himself at this time. Patient is accepted at [address] [address] ([phone]) and will be admitted for placement upon discharge. Patient has no supportive contacts at this time. SW will continue to work with the patient and MD to ensure a safe and proper discharge plan.
--- NOTE | 2019-09-09 15:04 | NUR ---
GROUP NOTE: Topic: Learning coping skills. powder worker tnt attempted to encourage to participate in group. Patient was asleep at this time and unable to participate.
[2019-09-09 16:00] VITALS: BP 158/77
--- NOTE | 2019-09-09 19:49 | NUR ---
GPS RN NOTES RECEIVED PATIENT IN BED, ASLEEP EASILY AROUSED. BREATHING EVEN AND UNLABORED ON ROOM AIR. SHOWS NO SIGNS OF ACUTE RESPIRATORY DISTRESS, NO ACUTE PAIN. PT IS ALERT AND ORIENTED X1. CONFUSED AND ANXIOUS, ONLY SPEAKS ALBANIAN.PT IS COMPLIANT WITH MEDICATIONS. SAFETY PRECAUTIONS IN PLACE. BED IN LOWEST POSITION, LOCKED, AND SIDE RAILS UP. WILL CONTINUE TO MONITOR.
[2019-09-09 21:09] VITALS: BP 148/85
[2019-09-09] MEDS: ATORVASTATIN 40 MG TABLET PO SCH (21:35)
[2019-09-10] MEDS: LORAZEPAM 0.5 MG TABLET PO PRN ×2 (00:51→21:52)
[2019-09-10 07:32] LABS: BASOPHILS % (AUTO) 0.1 % (0.0-2.0); EOSINOPHILS % (AUTO) 0.5 % (0.0-6.0); HEMATOCRIT 33 % (39-51); HEMOGLOBIN 10.8 g/dL (13.5-17.5); LYMPHOCYTES # (AUTO) 1.1 /CMM (0.8-4.8); LYMPHOCYTES % (AUTO) 8.9 % (20.0-44.0); MEAN CORPUSCULAR HGB CONC 33 g/dl (31.0-36.0); MEAN CORPUSCULAR VOLUME 96 fL (80-96); MONOCYTES # (AUTO) 0.7 /CMM (0.1-1.30); NEUTROPHILS # (AUTO) 10.3 /CMM (1.8-8.9); NEUTROPHILS % (AUTO) 84.5 % (43.0-81.0); PLATELET COUNT (AUTO) 266 /CMM (150-450); RED BLOOD CELL COUNT(AUTO) 3.46 MIL/uL (4.5-6.0); WHITE BLOOD COUNT (AUTO) 12.2 K/uL (4.3-11.0)
[2019-09-10 07:44] LABS: CALCIUM, SERUM 11.8 mg/dL (8.5-10.1); CREATININE 1.3 mg/dL (0.6-1.3); MAGNESIUM 2.2 mg/dL (1.8-2.4); PHOSPHORUS 2.9 mg/dL (2.5-4.9); POTASSIUM 3.4 mmol/L (3.5-5.1)
[2019-09-10 08:00] VITALS: BP 139/63
[2019-09-10] MEDS: ENSURE ENLIVE CHOC 237 ML CAN PO SCH ×2 (08:35→16:37)
[2019-09-10] MEDS: CLOTRIMAZOLE 1% 15 GM TUBE TP SCH ×2 (08:35→16:38)
[2019-09-10] MEDS ORDERED: POTASSIUM CHLORIDE 20 MEQ TAB.PRT.SR PO SCH (10:30)
[2019-09-10] MEDS ORDERED: POTASSIUM CHLORIDE 20 MEQ POWDER PACKET PO ONE (11:00)
[2019-09-10] MEDS: SERTRALINE HCL 25 MG TABLET PO SCH ×2 (12:08→16:37)
[2019-09-10 16:00] VITALS: BP 100/68
--- NOTE | 2019-09-10 18:54 | NUR ---
GPS/RN-NOTES NO STOOL COLLECTED TODAY. WILL ENDORSE TO INCOMING NURSE FOR COLLECTION AND CONTINUITY OF CARE.
[2019-09-10 20:18] VITALS: BP 141/71
[2019-09-10] MEDS: ATORVASTATIN 40 MG TABLET PO SCH (21:51)
[2019-09-11 07:27] LABS: BASOPHILS % (AUTO) 0.2 % (0.0-2.0); HEMATOCRIT 32 % (39-51); HEMOGLOBIN 10.6 g/dL (13.5-17.5); LYMPHOCYTES # (AUTO) 1.3 /CMM (0.8-4.8); LYMPHOCYTES % (AUTO) 12.2 % (20.0-44.0); MEAN CORPUSCULAR HGB CONC 33 g/dl (31.0-36.0); MEAN CORPUSCULAR VOLUME 95 fL (80-96); MONOCYTES # (AUTO) 0.5 /CMM (0.1-1.30); MONOCYTES % (AUTO) 4.9 % (2.0-12.0); NEUTROPHILS # (AUTO) 8.4 /CMM (1.8-8.9); NEUTROPHILS % (AUTO) 80.7 % (43.0-81.0); PLATELET COUNT (AUTO) 228 /CMM (150-450); RED BLOOD CELL COUNT(AUTO) 3.39 MIL/uL (4.5-6.0); WHITE BLOOD COUNT (AUTO) 10.4 K/uL (4.3-11.0)
[2019-09-11 07:38] LABS: CALCIUM, SERUM 12.8 mg/dL (8.5-10.1); CARBON DIOXIDE 30 mmol/L (21-32); CHLORIDE 122 mmol/L (98-107); CREATININE 1.4 mg/dL (0.6-1.3); GLUCOSE 126 mg/dL (74-106); MAGNESIUM 2.4 mg/dL (1.8-2.4); PHOSPHORUS 3.9 mg/dL (2.5-4.9); POTASSIUM 3.6 mmol/L (3.5-5.1); UREA NITROGEN, BLOOD 22 mg/dL (7-18)
[2019-09-11 08:00] VITALS: BP 126/80
--- NOTE | 2019-09-11 08:15 | NUR ---
RN NOTE- LAB CALLED CRITICAL NA VALUE OF 160. TEAM ASSEMBLER NOTIFIED. CALLED
[2019-09-11 08:18] LABS: SODIUM SERUM 160 mmol/L (136-145)
--- NOTE | 2019-09-11 08:22 | NUR ---
RN-CO: Notified Dr Ashby regarding Na level of pt. 165. Awaiting to call back.
--- NOTE | 2019-09-11 08:24 | NUR ---
RN-CO: NOTIFIED DR LOPEZ REGARDING NA LEVEL OF PATIENT 165. AWAITING TO CALL BACK.
[2019-09-11] MEDS: ENSURE ENLIVE CHOC 237 ML CAN PO SCH (08:28)
[2019-09-11] MEDS: CLOTRIMAZOLE 1% 15 GM TUBE TP SCH (08:30)
--- NOTE | 2019-09-11 08:48 | NUR ---
RN-CO: Paged Dr Ashby notified regarding Na level of 165.
--- NOTE | 2019-09-11 09:00 | NUR ---
RN NOTE- PT LETHARGIC ORIENTED TO SELF WHEN NAME IS SPOKEN DIFFICULTY COMMMUNICATING CRITICAL NA LEVEL 160. MD AWARE PENDING ORDERS. POOR INTAKE LOW MOBILITY NEEDS ATTENDED REPOSTIONED FLOATING HEELS ETC
--- NOTE | 2019-09-11 09:10 | NUR ---
RN-CO: DR MORGAN ORDERED D5W 1 LITER 100 ML/HR AND AM LABS.NOTED AND CARRIED OUT.
[2019-09-11] MEDS ORDERED: IV D5W 1,000 ML IV ONE (09:30)
--- NOTE | 2019-09-11 10:04 | NUR ---
RN-CO: PATIENT HAS NO FAMILY MEMBER TO CALL.
--- NOTE | 2019-09-11 10:04 | NUR ---
RN-CO: SUGGESTED TO dR [place] IF WE CAN TRANSFER PATIENT TO MEDICAL FLOOR, AWAITING TO CALL BACK.
--- NOTE | 2019-09-11 10:05 | NUR ---
RN NOTE- DT HEATHER MORGAN CALLED AND ORDERED D5W 1000 ML BAG AT 100ML/HR. IV STARTED LT POSTERIOR WRIST. IV FLUIDS UP AND RUNNING. RN AT BEDSIDE TO MONITOR AND ASSIST. AM LABS ORDERED PER DR HEATHER MORGAN
--- NOTE | 2019-09-11 11:29 | NUR ---
RN-CO: DR HEATHER MORGAN ORDERED TO DISCHARGE PATIENT TO MEDICAL FLOOR DUE TO HIGH NA LEVEL 165 AND FURTHER EV[address]UATION[address] LOPEZ MADE AWARE AND SHE ORDERED TO DISCONTINUE HOLD AND AGREED TO DR MORGAN. NO FAMILY MEMBERS TO NOTIFY. PATIENT IS ON [id number] @ 100 ML /HR.
[2019-09-11] MEDS: SERTRALINE HCL 25 MG TABLET PO SCH (12:26)
--- NOTE | 2019-09-11 12:56 | NUR ---
SAIDA-CO: REPORT GIVEN TO ABBE.
--- NOTE | 2019-09-11 13:08 | NUR ---
RN-CO: PATIENT WAS DISCHARGE TO MEDICAL FLOOR ROOM 202. RECEIVING NURSE IS ABBE.
[2019-09-11] MEDS ORDERED: LACT-179 PO (16:37)
[2019-09-11] MEDS ORDERED: ATOR40TA PO (16:37)
[2019-09-11] MEDS ORDERED: MAGN400O6 PO (16:37)
[2019-09-11] MEDS ORDERED: SERT25TA PO (16:37)
[2019-09-11] MEDS ORDERED: MAG30ORA PO (16:37)
[2019-09-11] MEDS ORDERED: ALLA266C2 TP (16:37)
[2019-09-11] MEDS ORDERED: LORA-259 PO (16:37)
[2019-09-11] MEDS ORDERED: CLOT15CR27 TP (16:37)
[2019-09-11] MEDS ORDERED: ACET-73 PO (16:37)
[2019-09-11] MEDS ORDERED: TRAM50TA2 PO (16:37)
--- NOTE | 2019-09-12 08:51 | NUR ---
Discharge Note: Patient was discharged from [facility] and transferred to [facility] on 09/11/19 due to High NA levels and further evaluation. Dr. Ag discontinued the patient's psychiatric hold. Patient was initially from home where he lived alone, and [place] [id number] ([phone]) where he would be admitted for placement. [phone] Sherman CINTRON was keeping updated regarding patients discharge plan. Patient's son, Loreto Byrd ([phone]) is unreachable.
== END 2019-09-11 13:14 | disposition short-term general hospital (02) | DRG 885 ==
LOC: GPS 16:49
PROVIDERS: ADMIT Psychiatry & Neurology Psychosomatic Medicine; ATTEND Nurse Practitioner Acute Care
DX: F33.2 Major depressive disorder, recurrent severe without psychotic features (principal); N17.0 Acute kidney failure with tubular necrosis; R45.851 Suicidal ideations; E87.0 Hyperosmolality and hypernatremia; E87.6 Hypokalemia; E86.0 Dehydration; E78.5 Hyperlipidemia, unspecified; E03.9 Hypothyroidism, unspecified; I10 Essential (primary) hypertension; F41.9 Anxiety disorder, unspecified; G62.9 Polyneuropathy, unspecified; E83.52 Hypercalcemia; R73.9 Hyperglycemia, unspecified; E67.3 Hypervitaminosis D
CPT/HCPCS: 36415; 71250-TC; 80048-TC; 80053-TC; 80061-TC; 83735-TC; 84100-TC; 85025-TC; 92611-TC; 97116-TC; 97530-TC; J7070

== ENCOUNTER 2019-09-11 13:37 | Inpatient (IN) | payer MEDICARE, OTHER ==
[~2019-09-11] VITALS: Ht 172.7 cm; Wt 47.7 kg
[2019-09-11 14:00] VITALS: BP 94/68
[2019-09-11] MEDS: IV D5W 1,000 ML IV PRN ×2 (14:00→20:35)
--- NOTE | 2019-09-11 14:40 | NUR ---
RN NOTES SEEN PATIENT BY HOSPITALIST, GET TO ORDER STAT ABG, COVED TESTING, BLOOD CULTURE, MEI CATHETER, RESTRAIN, AND STAT CHEST X-RAY, ORDER TAKEN AND CARRIED OUT.
--- NOTE | 2019-09-11 14:49 | NUR ---
RN NOTES PATIENT HR-122, R-27, O2-83/ 84, T-99.1, BP 94/68. PATIENT PATIENT FULL CODE , CALLED AND NOTIFIED HEATHER MORGAN .
[2019-09-11 15:00] VITALS: BP 94/58
[2019-09-11 16:19] LABS: ABG BASE EXCESS 3.4 mmol/L; ABG PCO2 43.5 mmHg (35.0-45.0); ABG PH 7.429 (7.350-7.450); ABG PO2 72.2 mmHg (75.0-100.0); AaDO2 199.2 mmHg; MetHb 0.4 % (0.0-1.5); O2Hb 93.6 % (94.0-97.0); SITE, ABG Right Radial; VENT MODE, BG SIMPLE MASK
--- NOTE | 2019-09-11 16:23 | NUR ---
rn notes COVID-19 FASTEST SPECIMEN TAKEN.
[2019-09-11] MEDS ORDERED: ENOXAPARIN SODIUM 40 MG/0.4 ML DISP.SYRIN SQ SCH (16:30)
[2019-09-11] MEDS ORDERED: Z GUARD REMEDY 2 OZ OINT TP PRN (16:30)
[2019-09-11] MEDS ORDERED: ONDANSETRON HCL/PF 4 MG/2 ML VIAL IVP PRN (16:30)
[2019-09-11] MEDS ORDERED: ACETAMINOPHEN 325 MG TABLET PO PRN (16:30)
[2019-09-11] MEDS ORDERED: SERT25TA PO (16:37)
[2019-09-11] MEDS ORDERED: MAG30ORA PO (16:37)
[2019-09-11] MEDS ORDERED: TRAM50TA2 PO (16:37)
[2019-09-11] MEDS ORDERED: ACET-73 PO (16:37)
[2019-09-11] MEDS ORDERED: ALLA266C2 TP (16:37)
[2019-09-11] MEDS ORDERED: LACT-179 PO (16:37)
[2019-09-11] MEDS ORDERED: MAGN400O6 PO (16:37)
[2019-09-11] MEDS ORDERED: CLOT15CR27 TP (16:37)
[2019-09-11] MEDS ORDERED: LORA-259 PO (16:37)
[2019-09-11] MEDS ORDERED: ATOR40TA PO (16:37)
[2019-09-11 17:00] VITALS: BP 105/56
--- NOTE | 2019-09-11 17:30 | NUR ---
RN NOTES ABG RESULT NO CRITICAL,AND COVED RESULT WAS NEGATIVE. NOTIFIED HOSPITALIST, NO NEW ORDERS.
--- NOTE | 2019-09-11 18:30 | NUR ---
RN NOTES PATIENT IN THE BED REFUSED DINNER, PATIENT ASPIRATION PRECAUTION, V/S TAKEN BP 105/56, P-101, R-21,T-98, 02-4L,100 MASK, ASSIST TURN AND REPOSTION Q 2 HR, MEI CATHETER DRAINING TEA COLOR OUTPUT, KEEP HOB ELEVATED FOR ASPIRATION PRECAUTION. TITRATED O2-3L, IV ACCESS ON LEFT FA INTACT INFUSING D5W AT 100 ML/HR.TRIGGERED WOUND CONSULT. ENDORSED ONCOMING NURSE FOLLOW PLAN OF CARE.
--- NOTE | 2019-09-11 19:40 | NUR ---
MS RN OPENING NOTES RECEIVED PATIENT FROM MORNING SHIFT, OBTUNDED OPENS EYES. BREATHING REGULAR AND UNLABORED ON OXYGEN AT 4L/MIN VIA FACE MASK. LEFT FOREARM G24 IV LINE INTACT AND PATENT, INFUSING WELL WITH NO BLEEDING OR S/S OF INFILTRATION NOTED. NO S/S OF PAIN/DISCOMFORT SEEN AT THIS TIME. BILATERAL SOFT WRIST RESTRAINTS ON, SKIN ASSESSMENT DONE. BED LOW AND LOCKED ON SEMI FOWLERS POSITION. CALL LIGHT IN REACH. WILL CONTINUE TO MONITOR.
[2019-09-11 20:00] VITALS: BP 105/51
[2019-09-11 20:15] VITALS: BP 105/51
[2019-09-11] MEDS: ATORVASTATIN 40 MG TABLET PO SCH (21:25)
--- NOTE | 2019-09-11 21:30 | NUR ---
MS RN NOTES BODY ASSESSMENT DONE, SEEN WITH SACRAL REDNESS. PHOTO TAKEN, ATTACHED TO CHART. MEPILEX APPLIED. WOUND CONSULT ORDERED BY MORNING NURSE. REPOSITIONING EVERY 2HRS AND NEEDED.
--- NOTE | 2019-09-11 22:50 | NUR ---
MS RN NOTES RELAYED TROPONIN RESULT TO LEVEL INCREASED FROM 0.090 TO 0.104 WITH NO NEW ORDERS RECEIVED.
[2019-09-12 02:31] LABS: APPEARANCE,URINE CLEAR (CLEAR); BILIRUBIN,URINE NEGATIVE (NEGATIVE); BLOOD, URINE TRACE-INTA Ery/uL (NEGATIVE); COLOR,URINE YELLOW (YELLOW); KETONES,URINE NEGATIVE (NEGATIVE); LEUKOCYTE ESTERASE ,URINE NEGATIVE (NEGATIVE); NITRITE, URINE NEGATIVE (NEGATIVE); PH,URINE 6.5 (5.0-8.0); PROTEIN,URINE NEGATIVE (NEGATIVE); UGLUCOSE NEGATIVE (NEGATIVE)
[2019-09-12 02:56] LABS: BACTERIA,URINE Few /HPF (None Seen); SQUAMOUS EPITHELIAL CELL,UR Few /HPF (None Seen)
[2019-09-12] MEDS: IV D5W 1,000 ML IV PRN ×2 (06:26→16:46)
[2019-09-12 06:37] LABS: BASOPHILS % (AUTO) 0.1 % (0.0-2.0); EOSINOPHILS % (AUTO) 0.5 % (0.0-6.0); HEMATOCRIT 29 % (39-51); HEMOGLOBIN 9.2 g/dL (13.5-17.5); LYMPHOCYTES # (AUTO) 1.5 /CMM (0.8-4.8); LYMPHOCYTES % (AUTO) 10.5 % (20.0-44.0); MEAN CORPUSCULAR HGB CONC 32 g/dl (31.0-36.0); MEAN CORPUSCULAR VOLUME 97 fL (80-96); MONOCYTES # (AUTO) 0.6 /CMM (0.1-1.30); MONOCYTES % (AUTO) 4.1 % (2.0-12.0); NEUTROPHILS # (AUTO) 11.7 /CMM (1.8-8.9); NEUTROPHILS % (AUTO) 84.8 % (43.0-81.0); PLATELET COUNT (AUTO) 174 /CMM (150-450); RED BLOOD CELL COUNT(AUTO) 2.97 MIL/uL (4.5-6.0); WHITE BLOOD COUNT (AUTO) 13.8 K/uL (4.3-11.0)
[2019-09-12 06:52] LABS: ALANINE AMINOTRANSFERASE 19 U/L (12-78); ALBUMIN 1.9 g/dL (3.4-5.0); ALKALINE PHOSPHATASE 66 U/L (46-116); ASPARTATE AMINOTRANSFERASE 20 U/L (15-37); CALCIUM, SERUM 11.1 mg/dL (8.5-10.1); CARBON DIOXIDE 31 mmol/L (21-32); CHLORIDE 117 mmol/L (98-107); CREATININE 1.4 mg/dL (0.6-1.3); MAGNESIUM 2.1 mg/dL (1.8-2.4); PHOSPHORUS 3.2 mg/dL (2.5-4.9); POTASSIUM 3.2 mmol/L (3.5-5.1); SODIUM SERUM 152 mmol/L (136-145); TOTAL PROTEIN, SERUM 5.4 g/dL (6.4-8.2); UREA NITROGEN, BLOOD 24 mg/dL (7-18)
--- NOTE | 2019-09-12 06:55 | NUR ---
MS RN CLOSING NOTES PATIENT IN BED, ALERT AND ORIENTED X 1 MUMBLES. AFEBRILE WITH NO S/S OF DISTRESS OBSERVED. LEFT FOREARM G24 IV LINE PATENT AND INFUSING WELL. NO S/S OF PAIN/DISCOMFORT SEEN AT THIS TIME. BILATERAL SOFT WRIST RESTRAINTS DISCONTINUED. BED LOW AND LOCKED ON SEMI FOWLERS POSITION. CALL LIGHT IN REACH. WILL ENDORSE TO MORNING SHIFT FOR THIEN.
[2019-09-12 07:15] LABS: GLUCOSE 154 mg/dL (74-106)
[2019-09-12 08:00] VITALS: BP 123/54
--- NOTE | 2019-09-12 08:00 | NUR ---
MS RN OPENING NOTES Received Patient resting in bed. Non-verbal, responsive to name and touch. VS stable with no acute distress. Breathing even and unlabored on room air with no respiratory distress. Denies pain. No signs and symptoms of pain. 24g PIV on left forearm clean, intact, patent and flushing well with D5W infusing at 100ml/hr. Addison Cath in place and patent with clear yellow output noted. Safety precautions in place. Bed locked and set to lowest position with side rails x 2 up. All needs rendered at this time. Call light within reach. Will continue to monitor. Addendum: 09/12/19 at 0902 by JILL DAMON RN Breathing even and unlabored on 4LPM via Mask with no respiratory distress
--- NOTE | 2019-09-12 08:47 | NUR ---
WOUND CARE CONSULT:SEEN PATIENT AT BEDSIDE,PATIENT PRESENTS SCARRING ON SACRAL ,PRESENT ON ADMISSION,RECOMMENDATION MADE FOR SKIN PROTECTION AND CARE ,DISCUSSED WITH NURSING STAFF,ISOFLEX DAJUAN BED IN USE, ALOK SCORE IS 11,PATIENT HAS MEI CATHETER AT THIS TIME,MD IN AGREEMENT WITH PLAN OF CARE , WILL SEE PRN
[2019-09-12] MEDS: POTASSIUM CHLORIDE 20 MEQ POWDER PACKET PO SCH ×2 (11:33→12:26)
[2019-09-12] MEDS: ENSURE ENLIVE 237 ML LIQUID (VANILLA) PO SCH ×2 (12:27→17:50)
[2019-09-12 14:37] LABS: ABG BASE EXCESS 2.1 mmol/L; ABG OXYGEN SATURATION 96.1 % (92.0-98.5); ABG PH 7.392 (7.350-7.450); AaDO2 84.3 mmHg; COHb 0.3 % (0.5-1.5); MetHb 0.3 % (0.0-1.5); O2Hb 95.5 % (94.0-97.0); SITE, ABG Right Radial; VENT MODE, BG Nasal Cannula
[2019-09-12 16:00] VITALS: BP 109/52
--- NOTE | 2019-09-12 18:30 | NUR ---
MS RN NOTES All Patients belongings, including dentures, clothes and cane, in cabinet next to sink.
--- NOTE | 2019-09-12 18:49 | NUR ---
MS RN CLOSING NOTES Patient resting in bed. Non-verbal, responsive to name and touch. VS stable with no acute distress. Breathing even and unlabored on 4LPM via Mask with no respiratory distress. Denies pain. No signs and symptoms of pain. 24g PIV on left forearm clean, intact, patent and flushing well with D5W infusing at 100ml/hr. Addison Cath in place and patent with clear yellow output noted. Safety precautions in place. Bed locked and set to lowest position with side rails x 2 up. All needs rendered at this time. Call light within reach. Will endorse plan of care to oncoming shift.
[2019-09-12] MEDS ORDERED: FEE PK DOSING 1 MIN EA MC ONE (18:58)
[2019-09-12] MEDS ORDERED: CEFTRIAXONE 1 G in IV D5W 50 ML IV SCH (19:00)
--- NOTE | 2019-09-12 19:30 | NUR ---
MS RN OPENING NOTES RECEIVED PATIENT FROM MORNING SHIFT, ALERT AND ORIENTED X 1. BREATHING REGULAR AND UNLABORED ON OXYGEN AT 3L/MIN VIA FACE MASK. LEFT FOREARM G24 IV LINE INTACT AND PATENT, INFUSING WELL WITH NO BLEEDING OR S/S OF INFILTRATION NOTED. NO S/S OF PAIN/DISCOMFORT SEEN AT THIS TIME. DVT PUMP ON. BED LOW AND LOCKED ON SEMI FOWLERS POSITION. CALL LIGHT IN REACH. WILL CONTINUE TO MONITOR.
[2019-09-12 20:00] VITALS: BP 112/54
[2019-09-12] MEDS ORDERED: VANCOMYCIN 1 GM in IV D5W 260 ML IV ONE (20:00)
[2019-09-12] MEDS: CEFTRIAXONE 1 G in IV D5W 50 ML IV SCH (20:28)
[2019-09-12 20:58] VITALS: BP 112/54
[2019-09-12] MEDS: ATORVASTATIN 40 MG TABLET PO SCH (21:16)
[2019-09-12] MEDS: ENOXAPARIN SODIUM 30 MG/0.3 ML DISP.SYRIN SQ SCH (21:16)
--- NOTE | 2019-09-12 21:30 | NUR ---
MS RN NOTES ROCEPHIN AND VANCOMYCIN IV GIVEN, MONITORED FOR DRUG ADVERSE REACTIONS. ASSISTED ON EATING PUREED PEACH, WELL TOLERATED. MAINTAINED ON ASPIRATION PRECAUTIONS.
[2019-09-13] MEDS: IV D5W 1,000 ML IV PRN ×2 (05:21→17:36)
--- NOTE | 2019-09-13 06:30 | NUR ---
MS RN CLOSING NOTES PATIENT IN BED, ALERT AND ORIENTED X 1 MUMBLES. AFEBRILE WITH NO S/S OF DISTRESS OBSERVED. LEFT FOREARM G24 IV LINE PATENT AND INFUSING WELL. NO S/S OF PAIN/DISCOMFORT SEEN AT THIS TIME. MEI CATH INTACT WITH CLEAR YELLOW URINE 700cc OUTPUT. BED LOW AND LOCKED ON SEMI FOWLERS POSITION. CALL LIGHT IN REACH. WILL ENDORSE TO MORNING SHIFT FOR THIEN.
--- NOTE | 2019-09-13 07:57 | NUR ---
MS RN OPENING NOTES Received Patient resting in bed. Non-verbal, responsive to name and touch. VS stable with no acute distress. Breathing even and unlabored on 3LPM via Mask with no respiratory distress. Denies pain. No signs and symptoms of pain. 24g PIV on left forearm intact, patent and flushing well with D5W infusing at 100ml/hr. Addison Cath in place and patent with clear yellow output noted. Safety precautions in place. Bed locked and set to lowest position with side rails x 2 up. All needs rendered at this time. Call light within reach. Will continue to monitor.
[2019-09-13 08:00] VITALS: BP 124/68
[2019-09-13 08:17] LABS: BASOPHILS % (AUTO) 0.1 % (0.0-2.0); EOSINOPHILS % (AUTO) 3.1 % (0.0-6.0); HEMATOCRIT 26 % (39-51); HEMOGLOBIN 8.6 g/dL (13.5-17.5); LYMPHOCYTES # (AUTO) 1.4 /CMM (0.8-4.8); LYMPHOCYTES % (AUTO) 15.2 % (20.0-44.0); MEAN CORPUSCULAR HGB CONC 34 g/dl (31.0-36.0); MEAN CORPUSCULAR VOLUME 96 fL (80-96); MONOCYTES # (AUTO) 0.4 /CMM (0.1-1.30); NEUTROPHILS # (AUTO) 7.1 /CMM (1.8-8.9); NEUTROPHILS % (AUTO) 77.6 % (43.0-81.0); PLATELET COUNT (AUTO) 156 /CMM (150-450); RED BLOOD CELL COUNT(AUTO) 2.69 MIL/uL (4.5-6.0); WHITE BLOOD COUNT (AUTO) 9.1 K/uL (4.3-11.0)
[2019-09-13] MEDS: ENSURE ENLIVE 237 ML LIQUID (VANILLA) PO SCH ×3 (08:24→17:34)
[2019-09-13 08:35] LABS: CALCIUM, SERUM 9.3 mg/dL (8.5-10.1); CREATININE 1.1 mg/dL (0.6-1.3); MAGNESIUM 1.9 mg/dL (1.8-2.4); PHOSPHORUS 2.7 mg/dL (2.5-4.9)
[2019-09-13] MEDS ORDERED: POTASSIUM CHLORIDE 10 MEQ TABLET.SA PO SCH (11:30)
[2019-09-13] MEDS ORDERED: POTASSIUM CHLORIDE 20 MEQ POWDER PACKET PO ONE ×2 (13:00→15:00)
[2019-09-13] MEDS: VANCOMYCIN 0.75 GM in IV D5W 250 ML IV SCH (15:20)
[2019-09-13 16:00] VITALS: BP 127/60
--- NOTE | 2019-09-13 18:38 | NUR ---
MS RN CLOSING NOTES Patient resting in bed. A/O x 1. VS stable with no acute distress. Breathing even and unlabored on 3LPM via Mask with no respiratory distress. Denies pain. No signs and symptoms of pain. 24g PIV on left forearm clean, intact, patent and flushing well with D5W infusing at 100ml/hr. Addison Cath in place and patent with clear yellow output noted. Safety precautions in place. Bed locked and set to lowest position with side rails x 2 up. All needs rendered at this time. Call light within reach. Will endorse plan of care to oncoming shift.
[2019-09-13] MEDS: CEFTRIAXONE 1 G in IV D5W 50 ML IV SCH (18:41)
--- NOTE | 2019-09-13 19:30 | NUR ---
MS RN NOTE: PATIENT RESTING IN BED, NO ACUTE DISTRESS NOTED. BREATHING EVEN AND UNLABORED, NO SOB NOTED. IV TO LFA IN PLACE, INFUSING D5W AT 100ML/HR. MEI CATHETER IN PLACE, DRAINING CLEAR YELLOW URINE. HOB ELEVATED. BED LOCKED AND IN LOWEST POSITION, CALL LIGHT IN REACH. WILL CONTINUE TO MONITOR.
[2019-09-13] MEDS ORDERED: VANCOMYCIN 0.75 GM in IV D5W 250 ML IV SCH (20:00)
[2019-09-13 20:07] VITALS: BP 97/50
[2019-09-13] MEDS: ENOXAPARIN SODIUM 30 MG/0.3 ML DISP.SYRIN SQ SCH (21:10)
[2019-09-13] MEDS: ATORVASTATIN 40 MG TABLET PO SCH (21:10)
--- NOTE | 2019-09-14 03:30 | NUR ---
MS RN NOTE: PATIENT SLEEPING IN BED, NO ACUTE DISTRESS NOTED. BREATHING EVEN AND UNLABORED, NO SOB NOTED. IV TO LFA IN PLACE, INFUSING D5W AT 100ML/HR. MEI CATHETER IN PLACE, DRAINING CLEAR YELLOW URINE. HOB ELEVATED. BED LOCKED AND IN LOWEST POSITION, CALL LIGHT IN REACH. WILL CONTINUE TO MONITOR.
[2019-09-14] MEDS: IV D5W 1,000 ML IV PRN ×2 (04:25→18:14)
--- NOTE | 2019-09-14 06:05 | NUR ---
MS RN NOTE: PATIENT RESTING IN BED, NO ACUTE DISTRESS NOTED. BREATHING EVEN AND UNLABORED, NO SOB NOTED. IV TO LFA IN PLACE, INFUSING D5W AT 100ML/HR. MEI CATHETER IN PLACE, DRAINED 900ML OF CLEAR YELLOW URINE. HOB ELEVATED. BED LOCKED AND IN LOWEST POSITION, CALL LIGHT IN REACH. WILL ENDORSE TO DAY NURSE TO CONTINUE WITH PLAN OF CARE.
[2019-09-14 08:00] VITALS: BP 103/46
[2019-09-14 08:10] VITALS: BP 103/46
--- NOTE | 2019-09-14 08:20 | NUR ---
WHILE FEEDING PT BREAKFAST,TRIED PUTTING PT ON O2 CANNULA AT 2L/MIN WITH O2 SAT OF 95-96%. NO SOB NOTED. PT DENIES SOB WELL.PT ATE 100% BREAKFAST WITH ASPIRATION PRECAUTIONS.ON NECTAR THICKENED LIQUIDS. WILL CONTINUE TO MONITOR.
[2019-09-14 08:36] LABS: CALCIUM, SERUM 11.2 mg/dL (8.5-10.1); CARBON DIOXIDE 33 mmol/L (21-32); CHLORIDE 107 mmol/L (98-107); GLUCOSE 122 mg/dL (74-106); PHOSPHORUS 3.1 mg/dL (2.5-4.9); POTASSIUM 3.8 mmol/L (3.5-5.1); SODIUM SERUM 141 mmol/L (136-145); UREA NITROGEN, BLOOD 16 mg/dL (7-18)
[2019-09-14 08:59] LABS: BASOPHILS % (AUTO) 0.3 % (0.0-2.0); EOSINOPHILS % (AUTO) 3.6 % (0.0-6.0); HEMATOCRIT 27 % (39-51); HEMOGLOBIN 8.8 g/dL (13.5-17.5); LYMPHOCYTES # (AUTO) 1.7 /CMM (0.8-4.8); MEAN CORPUSCULAR HGB CONC 33 g/dl (31.0-36.0); MEAN CORPUSCULAR VOLUME 95 fL (80-96); MONOCYTES # (AUTO) 0.3 /CMM (0.1-1.30); NEUTROPHILS # (AUTO) 4.2 /CMM (1.8-8.9); NEUTROPHILS % (AUTO) 65.1 % (43.0-81.0); PLATELET COUNT (AUTO) 154 /CMM (150-450); RED BLOOD CELL COUNT(AUTO) 2.81 MIL/uL (4.5-6.0); WHITE BLOOD COUNT (AUTO) 6.5 K/uL (4.3-11.0)
[2019-09-14] MEDS: ENSURE ENLIVE 237 ML LIQUID (VANILLA) PO SCH ×3 (09:00→17:17)
[2019-09-14] MEDS: VANCOMYCIN 0.75 GM in IV D5W 250 ML IV SCH (10:47)
[2019-09-14 16:00] VITALS: BP 100/60
--- NOTE | 2019-09-14 17:28 | NUR ---
PT TOLERATED O2 AT 1L/MIN VIA NC. O2 SAT 95%. WITH OCCASIONAL MOIST COUGH SPITTING OUT SMALL THICK YELLOWISH GREEN SPUTUM. STILL AWAITING TRANSFER TO SNF.PT DENIES ANY DISTRESS AND HAS GOOD APPETITE WHEN FED DURING MEALS. WILL CONTINUE TO MONITOR.TURNED EVERY TWO HRS. WILL BE TRANSFERRED TO ROOM 325-2 AFTER EATING HIS DINNER.
--- NOTE | 2019-09-14 19:20 | NUR ---
RN medsurg opening notes Received Pt from morning nurse. Pt is resting in bed comfortably. Pt is alert and orientedX1. Pt speaks Amharic and able to make needs known. Respiration is normal. No SOB. No S/S of distress noted. IV sites LFA# 24 is clean, intact and infusing well D5W@ 100ml/hr. Addison cath is intact, patent and draining yellow urine. Safety precautions is maintained. Bed at low position, brakes locked, HOB elevated, side rails upX3 and call light is within reach. Will continue to monitor.
[2019-09-14 20:00] VITALS: BP 110/55
[2019-09-14] MEDS: CEFTRIAXONE 1 G in IV D5W 50 ML IV SCH (20:17)
[2019-09-14] MEDS: ENOXAPARIN SODIUM 30 MG/0.3 ML DISP.SYRIN SQ SCH (20:40)
[2019-09-14] MEDS: ATORVASTATIN 40 MG TABLET PO SCH (21:04)
[2019-09-15] MEDS: VANCOMYCIN 0.75 GM in IV D5W 250 ML IV SCH (02:34)
--- NOTE | 2019-09-15 02:57 | NUR ---
RN medsurg notes Pt keep trying to pull an IV sites and yip several times. Informed Pt not to remove IV and yip. Pt is still trying to remove Iv and yip. Pt is alert and orientedX1. Informed and notified Jameel Love NP. SECRETARY ordered R soft wrist restraint. Charge nurse is aware and informed. Will continue to monitor.
[2019-09-15] MEDS: IV D5W 1,000 ML IV PRN ×3 (03:30→23:58)
[2019-09-15 06:42] LABS: BASOPHILS % (AUTO) 0.4 % (0.0-2.0); HEMATOCRIT 26 % (39-51); HEMOGLOBIN 8.6 g/dL (13.5-17.5); LYMPHOCYTES # (AUTO) 1.6 /CMM (0.8-4.8); LYMPHOCYTES % (AUTO) 29.5 % (20.0-44.0); MEAN CORPUSCULAR HGB CONC 34 g/dl (31.0-36.0); MEAN CORPUSCULAR VOLUME 93 fL (80-96); MONOCYTES # (AUTO) 0.3 /CMM (0.1-1.30); MONOCYTES % (AUTO) 6.4 % (2.0-12.0); NEUTROPHILS # (AUTO) 3.2 /CMM (1.8-8.9); NEUTROPHILS % (AUTO) 59.7 % (43.0-81.0); PLATELET COUNT (AUTO) 173 /CMM (150-450); RED BLOOD CELL COUNT(AUTO) 2.76 MIL/uL (4.5-6.0); WHITE BLOOD COUNT (AUTO) 5.4 K/uL (4.3-11.0)
--- NOTE | 2019-09-15 06:50 | NUR ---
RN medsurg closing notes Pt is resting in bed comfortably. Pt is alert and orientedX1. Pt speaks Urdu and able to make needs known. Respiration is normal. No SOB. No S/S of distress noted. VS is stable. Afebrile. Routine meds were given as ordered. IV sites LFA# 24 is clean, intact and infusing well D5W@ 100ml/hr. Addison cath is intact, patent and draining yellow urine. R soft wrist restrain is intact, skin is warm to touch and circulation is check q 2 hr. Kept Pt clean, dry and comfortable. All needs met and attended. Safety precautions is maintained. Bed at low position, brakes locked, HOB elevated, side rails upX3 and call light is within reach. Will endorse to morning nurse for THIEN.
[2019-09-15 07:12] LABS: CALCIUM, SERUM 10.9 mg/dL (8.5-10.1); CREATININE 0.9 mg/dL (0.6-1.3); MAGNESIUM 2.1 mg/dL (1.8-2.4); PHOSPHORUS 2.8 mg/dL (2.5-4.9)
--- NOTE | 2019-09-15 07:47 | NUR ---
MS/RN NOTES RECEIVED PATIENT ON BED. PATIENT IN NO APPARENT RESPIRATORY DISTRESS NOTED. NO SIGN AND SYMPTOM OF PAIN NOTED. WILL CONTINUE TO MONITOR.
[2019-09-15] MEDS: ENSURE ENLIVE 237 ML LIQUID (VANILLA) PO SCH ×3 (09:25→17:32)
[2019-09-15] MEDS: POTASSIUM CL. PREMIX PERIPHER. 50 ML IV SCH ×2 (10:15→12:53)
[2019-09-15] MEDS ORDERED: POTASSIUM CHLORIDE 20 MEQ TAB.PRT.SR PO ONE (10:30)
[2019-09-15 16:00] VITALS: BP 116/65
--- NOTE | 2019-09-15 18:43 | NUR ---
325 MS/RN CLOSING NOTES PATIENT IS ON BED. ALERT AND ORIENTED X1. PATIENT IN NO APPARENT RESPIRATORY DISTRESS NOTED. PATIENT IS NO SIGN AND SYMPTOM OF PAIN AT THIS TIME. IV ACCESS AT LEFT FOREARM #24 G WITH IV FLUID OF D5W 1L AT 100ML/HR ON AND INFUSING WELL. SEEN AND EXAMINED BY MD WITH ORDERS MADE CARRIED OUT. ALL DUE MEDICATION WAS GIVEN. CHECKED AND TURNED PATIENT EVERY 2 HOURS. SAFETY MEASURE IN PLACED. BED IN LOWEST POSITION AND LOCKED. SIDE RAILS UP X2. CALL LIGHT WITHIN REACH. WILL ENDORSED TO RETAIL BUSINESS MANAGER FOR THIEN.
[2019-09-15] MEDS: CEFTRIAXONE 1 G in IV D5W 50 ML IV SCH (19:35)
--- NOTE | 2019-09-15 19:42 | NUR ---
MS/RN OPENING NOTES RECEIVED PATIENT IN BED, ABLE TO VERBALIZE NEEDS, HAD PAIN GIVEN BY AM RN AT THE START OF SHIFT NORCO PO. PATIENT ON CONTINOUS BLADDER IRRIGATION AND FIRST BAG FOR THE SHIFT WAS STARTED AT 1900, AND EMPTIED OUTPUT NOW AT 2000 ML PINKISH COLOR, PATIENT HAS SOME DISCOMFORT, CHECK FOR ANY NEEDS, WILL CONTINUE, IV SITE ON RIGHT AC RUNNING WITH IVF AT A RATE OF 75 ML/HR. BED LOCKED, CALL LIGTHS WITHIN REACH, ON OXYGEN AT 1 LITER, RESPIRATIONS EVEN AND UNLABORED, WILL MONITOR. MEETING/EVENT PLANNER AT BEDSIDE CHECKING PATIENT VITAL SIGNS. BED LOCKED,CALL LIGHTS WITHIN REACH. PATIENT REQUIRE EXTENSIVE BOTTLING LINE OPERATOR. Addendum: 09/15/19 at 1949 by TALA SMITH RN PLS DISREGARD FOR ANOTHER PATIENT.
--- NOTE | 2019-09-15 19:51 | NUR ---
MS/RN OPENING NOTES RECEIVED PATIENT IN BED,IN BED, ABLE TO OPEN EYES BUT , CAN ACKNOWLEDGE NURSE, APPEAR WEAK BUT HAS STRONG ARMS THAT CAN MOVE, WITH MEI CATHETER DRAINING LIGHT YELLOWISH COLORED URINE, ON OXYGEN AT 1 LITER FOR COMFORT MEASURES, RESPIRATIONS EVENA ND UNLABORED, BED LOCKED, CALL LIGHT WITHIN REACH, WILL MONITOR. PATIENT ON NEEDED RESTRAINT FOR SAFETY, REMOVE AND CHECK CIRCULATION .
[2019-09-15 20:00] VITALS: BP 135/65
[2019-09-15] MEDS: ENOXAPARIN SODIUM 30 MG/0.3 ML DISP.SYRIN SQ SCH (20:11)
[2019-09-15] MEDS: ATORVASTATIN 40 MG TABLET PO SCH (21:19)
--- NOTE | 2019-09-16 06:28 | NUR ---
325-1MS/RN NOTES PATIENT INCOHERENT AND REQUIRE ASSITANCE FOR ALL NEEDS, OBSERVE SCRATCHING FACE WITH HIS ARTUR THAT CAUSE IRRITATION AN DSOME BLEEDING , ALSO PULLING OUT TUBINGS, FOR SAFETY WITH SOFT RESTRAIN NEEDED, BED LOCKED, CALL LIGHTS WITHIN REACH, MEI CATHETER WITH CLEAR COLORED URINE, IV SITE INFUSING WITH D5 WATER, MONITORED AND WILL ENDORSE TO AM RN FOR THIEN.
[2019-09-16 06:42] LABS: CALCIUM, SERUM 12.4 mg/dL (8.5-10.1); POTASSIUM 3.7 mmol/L (3.5-5.1)
--- NOTE | 2019-09-16 07:29 | NUR ---
MS/RN OPENING NOTES RECEIVED PATIENT ON BED. NO APPARENT RESPIRATORY DISTRESS NOTED. NO SIGN AND SYMPTOM PAIN AT THIS TIME. WILL CONTINUE TO MONITOR.
[2019-09-16 08:00] VITALS: BP 119/57
[2019-09-16] MEDS: ENSURE ENLIVE 237 ML LIQUID (VANILLA) PO SCH ×3 (08:34→17:00)
[2019-09-16] MEDS: IV D5W 1,000 ML IV PRN (11:07)
[2019-09-16] MEDS ORDERED: CALCITONIN,SALMON,SYNTHETIC 3.7 ML SPRAY.PUMP NS SCH (14:00)
[2019-09-16] MEDS ORDERED: CALC3.7S NS (14:33)
[2019-09-16] MEDS ORDERED: PAMIDRONATE 90 MG in IV NS 0.9% 500 ML IV ONE (15:00)
[2019-09-16 16:00] VITALS: BP 104/51
--- NOTE | 2019-09-16 19:09 | NUR ---
MS/RN CLOSING NOTES PATIENT IS ON BED ALERT AND ORIENTED X1. NO SIGN AND SYMPTOM OF PAIN. NO APPARENT RESPIRATORY DISTRESS NOTED. IV ACCESS AT LEFT FOREARM # 24G WITH IV FLUID OF D5W 1 L AT 100 ML/HR ON AND INFUSING WELL. SEEN AND EXAMINED BY MD WITH ORDERS MADE AND CARRIED OUT. ALL DUE MEDICATION WAS GIVEN. CHECKED AND TURNED PATIENT EVERY 2 HOURS. SAFETY PRECAUTION IN PLACED. BED IN LOWEST POSITION AND LOCKED, SIDE RAILS UP X2. CALL LIGHT WITH IN REACH. PATIENT IS FOR DISCHARGED TODAY. PATIENT IS GOING TO [facility] GIVE REPORT SY RN. WILL ENDORSED TO PERL DEVELOPER.
[2019-09-16 20:00] VITALS: BP 116/53
--- NOTE | 2019-09-16 20:15 | NUR ---
Discharge patient: Patient discharge order carried out. Patient is still stable. Patient on 2L nasal canula. Breathing well. No SOB. Breathing even and unlabored. No signs of distress. Gave report to EMT from [facility]. DC IV access. DC Addison Catheter. Patient left the unit at 2014
[2019-10-04] MEDS ORDERED: CEFE1VIA3 IJ (11:15)
[2019-10-14] MEDS ORDERED: CRAN3875 PO (18:50)
[2019-10-14] MEDS ORDERED: MULT-447 PO (18:50)
[2019-10-14] MEDS ORDERED: AMIN30LI2 PO (18:50)
[2019-10-14] MEDS ORDERED: ACET-868 PO (18:50)
[2019-10-14] MEDS ORDERED: ZINC1CAP2 PO (18:50)
[2019-10-14] MEDS ORDERED: DOCU-141 PO (18:50)
[2019-10-14] MEDS ORDERED: BISA10SU11 RC (18:50)
[2019-10-14] MEDS ORDERED: ASCO-352 PO (18:50)
[2019-10-14] MEDS ORDERED: CALC3.7S NS (18:50)
== END 2019-09-16 20:15 | DRG 193 ==
LOC: MEDSG2 13:37 → MED 09-14 18:34
PROVIDERS: ADMIT Nurse Practitioner Acute Care; ATTEND Nurse Practitioner Acute Care
DX: J15.9 Unspecified bacterial pneumonia (principal); J96.01 Acute respiratory failure with hypoxia; G93.41 Metabolic encephalopathy; E44.0 Moderate protein-calorie malnutrition; Z68.1 Body mass index [BMI] 19.9 or less, adult; R45.851 Suicidal ideations; E87.0 Hyperosmolality and hypernatremia; F33.2 Major depressive disorder, recurrent severe without psychotic features; J98.11 Atelectasis; E86.0 Dehydration; E87.6 Hypokalemia; D63.8 Anemia in other chronic diseases classified elsewhere; E03.9 Hypothyroidism, unspecified; F41.9 Anxiety disorder, unspecified; I10 Essential (primary) hypertension; E83.52 Hypercalcemia; I25.10 Atherosclerotic heart disease of native coronary artery without angina pectoris; N13.9 Obstructive and reflux uropathy, unspecified; Z90.79 Acquired absence of other genital organ(s); E88.09 Other disorders of plasma-protein metabolism, not elsewhere classified; E67.3 Hypervitaminosis D; G62.9 Polyneuropathy, unspecified; R73.9 Hyperglycemia, unspecified; F01.50 Vascular dementia, unspecified severity, without behavioral disturbance, psychotic disturbance, mood disturbance, and anxiety; D72.829 Elevated white blood cell count, unspecified; R00.0 Tachycardia, unspecified; R33.9 Retention of urine, unspecified; T50.2X5A Adverse effect of carbonic-anhydrase inhibitors, benzothiadiazides and other diuretics, initial encounter; Y92.89 Other specified places as the place of occurrence of the external cause
CPT/HCPCS: 36415; 36600; 71045-TC; 80048-TC; 80053-TC; 80202-TC; 81000-TC; 82140-TC; 82803-TC; 83735-TC; 84100-TC; 84484-TC; 85025-TC; 87040-TC; 87081-TC; 87086-TC; A6253; G0378; J0696; J1650; J2430; J3370; J3480; J7040; J7060; J7070

== ENCOUNTER 2019-09-26 11:13 | Inpatient (IN) | payer MEDICARE, OTHER ==
[2019-09-26] VITALS (14 sets, daily range): BP systolic 82–119; BP diastolic 33–61
[~2019-09-26] VITALS: Ht 170.2 cm; Wt 44.0 kg
[~2019-09-26 11:13] MED LIST changes: +ACET-73 PO; +ALLA266C2 TP; +CALC3.7S NS; +CLOT15CR27 TP; -CLOT15CR35 TP; -GABA-532 PO; +LACT-179 PO; +LORA-259 PO; +MAG30ORA PO; +MAGN400O6 PO; +SERT25TA PO; -SERT25TA5 PO; +TRAM50TA2 PO
--- NOTE | 2019-09-26 11:13 | NUR ---
ROBERTO Velazquez FROM [facility] C/O LOW BP AROUND 50S AND ALTERED MENTAL STATUS. PT IS AAOX0, NOT IN RESPIRATORY DISTRESS, HOOKED TO GRADUATE CIVIL ENGINEER, KEPT RESTED AND COMFORTABLE. WILL CONTINUE TO MONITOR.
--- NOTE | 2019-09-26 11:18 | NUR ---
PT SEEN AND EXAMINED BY .
--- NOTE | 2019-09-26 11:28 | NUR ---
IV LINE ESTABLISHED BLOOD DRAWN AND SENT TO LAB.
[2019-09-26] MEDS ORDERED: IV NS 0.9% 1,000 ML BAG IV ONE (11:30)
[2019-09-26 11:39] LABS: BASOPHILS # (AUTO) 0.1 /CMM (0.0-0.2); BASOPHILS % (AUTO) 0.5 % (0.0-2.0); EOSINOPHILS % (AUTO) 0.8 % (0.0-6.0); HEMATOCRIT 38 % (39-51); LYMPHOCYTES # (AUTO) 3.5 /CMM (0.8-4.8); LYMPHOCYTES % (AUTO) 28.6 % (20.0-44.0); MEAN CORPUSCULAR HGB CONC 31 g/dl (31.0-36.0); MEAN CORPUSCULAR VOLUME 99 fL (80-96); MONOCYTES # (AUTO) 0.7 /CMM (0.1-1.30); MONOCYTES % (AUTO) 5.8 % (2.0-12.0); NEUTROPHILS # (AUTO) 7.9 /CMM (1.8-8.9); NEUTROPHILS % (AUTO) 64.3 % (43.0-81.0); PLATELET COUNT (AUTO) 540 /CMM (150-450); RED BLOOD CELL COUNT(AUTO) 3.86 MIL/uL (4.5-6.0); WHITE BLOOD COUNT (AUTO) 12.3 K/uL (4.3-11.0)
--- NOTE | 2019-09-26 11:49 | NUR ---
URINE SPECIMEN COLLECTED AND SENT TO LAB.
[2019-09-26 11:52] LABS: APPEARANCE,URINE Clear (CLEAR); BILIRUBIN,URINE Negative (NEGATIVE); BLOOD, URINE Negative Ery/uL (NEGATIVE); COLOR,URINE Yellow (YELLOW); KETONES,URINE Negative (NEGATIVE); LEUKOCYTE ESTERASE ,URINE Negative (NEGATIVE); NITRITE, URINE Negative (NEGATIVE); PH,URINE 5.5 (5.0-8.0); PROTEIN,URINE Trace mg/dl (NEGATIVE); UGLUCOSE Negative (NEGATIVE); UROBILINOGEN,URINE 0.2 EU/dL (0.2)
[2019-09-26 11:56] LABS: ALANINE AMINOTRANSFERASE 24 U/L (12-78); ALBUMIN 2.5 g/dL (3.4-5.0); ALKALINE PHOSPHATASE 118 U/L (46-116); ASPARTATE AMINOTRANSFERASE 19 U/L (15-37); BILIRUBIN,DIRECT 0.3 mg/dL (0.0-0.2); BILIRUBIN,TOTAL 0.7 mg/dL (0.2-1.0); CALCIUM, SERUM 12.3 mg/dL (8.5-10.1); CARBON DIOXIDE 27 mmol/L (21-32); CHLORIDE 124 mmol/L (98-107); CREATININE 2.6 mg/dL (0.6-1.3); GLUCOSE 167 mg/dL (74-106); POTASSIUM 3.3 mmol/L (3.5-5.1); TOTAL PROTEIN, SERUM 7.5 g/dL (6.4-8.2); UREA NITROGEN, BLOOD 54 mg/dL (7-18)
[2019-09-26 11:57] LABS: SODIUM SERUM 163 mmol/L (136-145)
--- NOTE | 2019-09-26 11:57 | NUR ---
LAB CALLED SODIUM 163
[2019-09-26] MEDS ORDERED: CEFTRIAXONE 1GM BAG (ER ONLY) 50 ML IV ONE (12:06)
--- NOTE | 2019-09-26 12:07 | NUR ---
DOLLY CALLED ITS KER[facility]UMA
--- NOTE | 2019-09-26 12:14 | NUR ---
PATIENT SERVICES CLERK AT BEDSIDE FOR XRAY.
[2019-09-26] MEDS ORDERED: IV NS 0.9% 1,000 ML IV ONE (12:30)
[2019-09-26] MEDS ORDERED: CEFTRIAXONE 1GM BAG (ER ONLY) 1 GM/50 ML PIGGYBACK IV ONE (12:30)
--- NOTE | 2019-09-26 12:37 | NUR ---
CALLED PHARMACY FOR IV ANTIBIOTIC.
[2019-09-26] MEDS ORDERED: VANCOMYCIN 1 GM in IV D5W 250 ML IV ONE (13:00)
--- NOTE | 2019-09-26 13:41 | NUR ---
PAGED DOLLY FOR DR. VILLA
--- NOTE | 2019-09-26 14:25 | NUR ---
GOT 258 ICU
--- NOTE | 2019-09-26 14:28 | NUR ---
CALLED PIN MAKER NOT AVAILABLE PER UNIT TECH.
--- NOTE | 2019-09-26 15:00 | NUR ---
REPORT GIVEN TO ES VERGARA FOR THIEN.
--- NOTE | 2019-09-26 16:30 | NUR ---
RN NOTES RECEIVED PATIENT FROM ER. PATIENT TRANSFERRED TO BED. ATTACHED TO THE MONITOR. PATIENT CLEANED AND MADE COMFORTABLE IN BED. SKIN ASSESSMENT DONE, PICTURES TAKEN AND FILED ON THE CHART. HOB ELEVATED FOR SAP. SAFETY MEASURES OBSERVED AND PUT IN PLACE. CALL LIGHT PLACED WITHIN REACH, WILL CONTINUE TO MONITOR PATIENT ACCORDINGLY. > PATIENT SEEN ANND EXAMINED BY DR. GOTTLIEB. ORDERS MADE. ORDER NOTED AND CARRIED OUT. COVID SWAB DONE, SENT TO LAB >PAGED DR. VILLA FOR ADMISSION ORDERS
[2019-09-26] MEDS ORDERED: ACETAMINOPHEN 325 MG TABLET PO PRN (17:00)
[2019-09-26] MEDS ORDERED: MAGNESIUM HYDROXIDE 30 ML UDC PO PRN (17:00)
[2019-09-26] MEDS ORDERED: ZOLPIDEM TARTRATE 5 MG TABLET PO PRN (17:00)
[2019-09-26] MEDS ORDERED: MAG HYDROX/AL HYDROX/SIMETH 30 ML UDC PO PRN (17:00)
[2019-09-26] MEDS ORDERED: ONDANSETRON HCL/PF 4 MG/2 ML VIAL IVP PRN (17:00)
[2019-09-26] MEDS ORDERED: Z GUARD REMEDY 2 OZ OINT TP PRN (17:00)
[2019-09-26] MEDS ORDERED: HYDROCODONE/APAP 5/325MG TABLET PO PRN (17:00)
[2019-09-26] MEDS: HEPARIN SODIUM, PORCINE 5000 UNITS/1 ML VIAL SQ SCH (17:37)
[2019-09-26 18:10] LABS: APPEARANCE,URINE CLEAR (CLEAR); BILIRUBIN,URINE NEGATIVE (NEGATIVE); BLOOD, URINE NEGATIVE Ery/uL (NEGATIVE); COLOR,URINE YELLOW (YELLOW); KETONES,URINE NEGATIVE (NEGATIVE); LEUKOCYTE ESTERASE ,URINE NEGATIVE (NEGATIVE); NITRITE, URINE NEGATIVE (NEGATIVE); PH,URINE 5.5 (5.0-8.0); PROTEIN,URINE NEGATIVE (NEGATIVE); UGLUCOSE NEGATIVE (NEGATIVE); UROBILINOGEN,URINE 0.2 EU/dL (0.2)
[2019-09-26 18:43] LABS: CREATININE, URINE 105.5 MG/DL (30.0-125.0); URINE TOTAL PROTEIN 37.7 mg/dL (0-11.9)
--- NOTE | 2019-09-26 19:00 | NUR ---
RN NOTES PATIENT SEEN LYING ACROSS THE BED, WITH ATTEMPTS TO PULL OUT THE MEI CATHETER. PATIENT PLACED BACK TO BED. SAFETY MEASURES OBSERVED. BED ALARM TURNED ON. PAGED DR. VILLA TO OBTAIN ORDER FOR RESTRAINTS
[2019-09-26 19:09] LABS: EOSINOPHIL,URINE None Seen
--- NOTE | 2019-09-26 19:30 | NUR ---
DISABILITY REPRESENTATIVE NOTE RECEIVED PT IN BED RESTING COMFORTABLY. LETHARGIC, OPENS EYES SPONTANEOUSLY, IN NO S/SX OF ACUTE DISTRESS AT THIS TIME. PATIENT'S BREATHING IS EVEN AND UNLABORED WITH EQUAL RISE AND FALL OF THE CHEST. PATIENT IS ON 2 L OF OXYGEN VIA NC, TOLERATING WELL, SATURATING AT 96%. PATIENT IS SINUS RHYTHM ON SUPERVISOR WEAVING WITH HR AT 67. NOTED IV SITE ON RAC G20 D5 1/2 NS AT 150 ML/HR; PATENT AND FLUSHING WELL,NO S/S OF INFECTION OR INFILTRATION. NOTED SCAB AND REDNESS AT SACRUM. MEI CATH CONNECTED TO URINE BAG IN PLACE WITH CLEAR, TINY OUTPUT NOTED. SAFETY MEASURES IMPLEMENTED PER PROTOCOL. PATIENT BED ALARM IS ON. HEAD OF BED ELEVATED. BED IS LOCKED, IN LOWEST POSITION AND SIDE RAILS UP. CALL LIGHT WITHIN REACH OF THE PATIENT. WILL CONTINUE TO MONITOR AND REASSESS FOR ANY CHANGES. Addendum: 09/26/19 at 2106 by ISABEL MANRIQUE RN NOTED CODE STATUS ORDERED FULL CODE. NO FAMILY CONTACT NUMBER FOUND ON FILE. UNABLE TO VERIFY CODE STATUS WITH FAMILY.
[2019-09-26] MEDS: IV D5/0.45 NACL 1,000 ML IV PRN ×2 (19:53→23:33)
--- NOTE | 2019-09-26 20:00 | NUR ---
RN NOTE NOTED TEMP 100.6. COOLING MEASURES PROVIDED. PRN TYLENOL 650 MG ADMINISTERED ORDERED. WILL CONTINUE TO MONITOR TEMP.
--- NOTE | 2019-09-26 20:30 | NUR ---
RN NOTE TEMP RECHECKED AND REVEALED 98.2 F. WILL CONTINUE TO MONITOR FOR FEVER.
[2019-09-26] MEDS: CEFEPIME 2 GM in IV D5W 100 ML IV SCH (21:14)
--- NOTE | 2019-09-26 22:20 | NUR ---
CRITICAL LAB VALUE TELEPHONE CALL FROM MECHELLE FROM LAB, STATED PATIENT'S TROPONIN LEVEL IS 0.451. DR ALLAN NOTIFIED, STATED IF BP KEEPS DROPPING, MAY START LEVOPHED PER PROTOCOL.
[2019-09-26] MEDS ORDERED: NOREPINEPHRINE 8 MG in IV NS 0.9% 242 ML IV PRN (23:00)
[2019-09-26] MEDS ORDERED: NOREPINEPHRINE 4 MG/4 ML AMPUL IV ONE (23:31)
[2019-09-26] MEDS: NOREPINEPHRINE 8 MG in IV NS 0.9% 242 ML IV PRN (23:44)
--- NOTE | 2019-09-26 23:45 | NUR ---
RN NOTE NOTED ORDER FOR PICC LINE. HOWEVER, PICC LINE NURSE UNAVAILABLE UNTIL TOMORROW AM. INSERTED PERIPHERAL IV LINE G20 AT LEFT ANTECUBITAL BY PRODUCT MANUFACTURING PROFESSIONAL, FLUSHING WELL, PATENT NO INFILTRATION NOTED. STARTED PATIENT ON LEVOPHED PER PROTOCOL ORDERED. BP 83/38, P 66. WILL CONTINUE TO MONITOR AND TITRATE TO KEEP SBP >90.
[2019-09-27] VITALS (95 sets, daily range): BP systolic 82–127; BP diastolic 39–67
[2019-09-27] MEDS: HEPARIN SODIUM, PORCINE 5000 UNITS/1 ML VIAL SQ SCH ×3 (00:57→17:30)
--- NOTE | 2019-09-27 02:15 | NUR ---
RN NOTE TELEPHONE CALL RECEIVED FROM MECHELLE OF LAB, RELAYED CURRENT TROPONIN OF 0.415 WHICH APPEARS TRENDING DOWN EXPECTED. PROTOCOL WAS FOLLOWED. PATIENT NOW ON HEPARIN THERAPY. SUPPORT ENGINEER MADE AWARE.
[2019-09-27 05:13] LABS: BASOPHILS # (AUTO) 0.1 /CMM (0.0-0.2); BASOPHILS % (AUTO) 0.4 % (0.0-2.0); EOSINOPHILS % (AUTO) 0.6 % (0.0-6.0); HEMATOCRIT 29 % (39-51); HEMOGLOBIN 9.2 g/dL (13.5-17.5); LYMPHOCYTES # (AUTO) 2.5 /CMM (0.8-4.8); LYMPHOCYTES % (AUTO) 17.1 % (20.0-44.0); MEAN CORPUSCULAR HGB CONC 32 g/dl (31.0-36.0); MEAN CORPUSCULAR VOLUME 97 fL (80-96); MONOCYTES # (AUTO) 1.1 /CMM (0.1-1.30); MONOCYTES % (AUTO) 7.6 % (2.0-12.0); NEUTROPHILS # (AUTO) 10.7 /CMM (1.8-8.9); NEUTROPHILS % (AUTO) 74.3 % (43.0-81.0); PLATELET COUNT (AUTO) 328 /CMM (150-450); WHITE BLOOD COUNT (AUTO) 14.4 K/uL (4.3-11.0)
[2019-09-27] MEDS: IV D5/0.45 NACL 1,000 ML IV PRN ×3 (06:06→18:45)
[2019-09-27 06:25] LABS: ALANINE AMINOTRANSFERASE 18 U/L (12-78); ALBUMIN 1.8 g/dL (3.4-5.0); ALKALINE PHOSPHATASE 93 U/L (46-116); ASPARTATE AMINOTRANSFERASE 25 U/L (15-37); BILIRUBIN,TOTAL 0.4 mg/dL (0.2-1.0); CALCIUM, SERUM 9.8 mg/dL (8.5-10.1); CARBON DIOXIDE 24 mmol/L (21-32); CHLORIDE 124 mmol/L (98-107); CREATININE 2.4 mg/dL (0.6-1.3); GLUCOSE 221 mg/dL (74-106); MAGNESIUM 2.5 mg/dL (1.8-2.4); PHOSPHORUS 2.9 mg/dL (2.5-4.9); SODIUM SERUM 158 mmol/L (136-145); TOTAL PROTEIN, SERUM 5.7 g/dL (6.4-8.2); UREA NITROGEN, BLOOD 49 mg/dL (7-18)
--- NOTE | 2019-09-27 06:25 | NUR ---
CRITICAL LAB VALUE TELEPHONE CALL RECEIVED FROM MECHELLE OF LAB, RELAYED CURRENT SODIUM LEVEL OF 158 FROM PREVIOUS 163 WHICH APPEARS TRENDING DOWN EXPECTED. PROTOCOL WAS FOLLOWED. BARREL TESTER AND DRAINER MADE AWARE.
[2019-09-27 06:33] LABS: THYROID STIMULATING HORMONE 7.277 uIU/mL (0.358-3.74)
[2019-09-27 06:34] LABS: CREATINE KINASE, TOTAL 137 U/L (39-308)
--- NOTE | 2019-09-27 07:27 | NUR ---
BRAD PRIETO ORDERED FROM [facility] [employer] FOR PATIENT'S TEMP OF 95.6. PATIENT IS LETHARGIC, BREAKFAST HELD, WILL ORDER [facility] FOR BASELINE AND SAFETY.
[2019-09-27] MEDS: PANTOPRAZOLE 40 MG TABLET.DR PO SCH (07:30)
--- NOTE | 2019-09-27 08:05 | NUR ---
RN OPENING NOTE: RECEIVED PATIENT IN BED THIS MORNING. PATIENT IS LETHARGIC, UNABLE TO FOLLOW COMMANDS. RUNNING ON O2 2L/MIN VIA NC, SATING WELL. NO SIGNS OF ACUTE DISTRESS NOTED AT THIS TIME. PATIENT IS ON LEVO TO KEEP REGULATE BP. PER INTERRELATED SPECIAL EDUCATION TEACHER RN, PATIENT HAS HAD SB SINCE LAST NIGHT, CURRENTLY IN THE HIGH 40S. WOUND CARE PER ORDERS. PATIENT HAS MEI, DRAINING URINE. #20 LAC, #20 RAC, C/D/I, FLUSHING WELL, NO SIGNS OF COMPLICATIONS NOTED. AWAITING PICC LINE PLACEMENT. SAFETY MEASURES IMPLEMENTED, BED IN LOWEST POSITION, LOCKED, SIDE RAILS UP, CALL LIGHT WITHIN REACH. WILL CONTINUE TO MONITOR PATIENT FOR CHANGES.
--- NOTE | 2019-09-27 08:32 | NUR ---
WOUND CARE CONSULT: REVIEWED CHART, NURSING DOCUMENTATION AND PHOTOS WHICH INDICATE LESION TO LEFT CORNER OF MOUTH, SACRAL INTACT DEEP TISSUE INJURY WITH SURROUNDING SCARRING, SCROTAL SKIN IRRITATION, ALL PRESENT ON ADMISSION. RECOMMENDATIONS MADE FOR WOUND CARE AND SKIN PROTECTION. DEFER TO MD FOR MOUTH LESION. RN TO DISCUSS WITH MD. [facility]. MD IN AGREEMENT WITH PLAN OF CARE.
[2019-09-27] MEDS: HYDROCORTISONE SOD SUCCINATE 100 MG/2 ML VIAL IV SCH ×3 (08:51→21:27)
--- NOTE | 2019-09-27 09:48 | NUR ---
ST CAME TO EMMANUELEL PATIENT, REQUESTED NPO STATUS D/T LETHARGY, WILL COME BACK LATER ON TODAY TO RE-EVALUATE Addendum: 09/27/19 at 1038 by SHAGUFTA RAM RN PER ST, SHE WILL EVALUATE PATIENT TOMORROW. PATIENT IS NOT ALERT AND ABLE TO FOLLOW DIRECTIONS AT THIS TIME. PATIENT WILL REMAIN NPO STATUS D/T R/F ASPIRATION
--- NOTE | 2019-09-27 09:50 | NUR ---
BRAD SCOTT, PATIENT'S TEMP CURRENTLY 96.5, WILL CONTINUE TO MONITOR PATIENT. Addendum: 09/27/19 at 1032 by SHAGUFTA RAM RN TEMP IS NOW 97.2, WILL CONTINUE TO MONITOR Addendum: 09/27/19 at 1134 by SHAGUFTA RAM RN TEMP IS NOW 98.4, WILL CONTINUE TO MONITOR
[2019-09-27] MEDS: NOREPINEPHRINE 8 MG in IV NS 0.9% 242 ML IV PRN ×2 (11:00→21:27)
--- NOTE | 2019-09-27 11:15 | NUR ---
SPOKE TO HARMONY GALARZA (PATIENT'S TELEGRAPH OFFICE ROUTE AIDE) IN REGARDS TO PATIENT'S ADMISSION. INFORMED TELEGRAPH OFFICE ROUTE AIDE THAT PATIENT IS CURRENTLY IN THE ICU AND IS LETHARGIC, UNABLE TO SPEAK AT THIS TIME. SW STATED THAT THE PATIENT HAS A CAREGIVER BUT REFUSES TO GIVE THE NAME OF THE CAREGIVER. PATIENT HAS NO FAMILY CONTACT INFORMATION. WILL CONTACT SS TO GIVE THEM INFORMATION ABOUT PATIENT'S SW/CGV TO FIND OUT MORE INFORMATION. HARMONY GALARZA (TELEGRAPH OFFICE ROUTE AIDE) [phone] CAREGIVER (NAME UNKNOWN) [phone] Addendum: 09/27/19 at 1121 by SHAGUFTA RAM RN INFORMED [facility]
[2019-09-27] MEDS: POTASSIUM CL. PREMIX PERIPHER. 50 ML IV SCH ×5 (11:26→17:28)
[2019-09-27] MEDS ORDERED: CEFTRIAXONE 1 G in IV D5W 50 ML IV SCH (12:00)
--- NOTE | 2019-09-27 14:21 | NUR ---
PER PICC LINE NURSE, OK TO USE PICC LINE, PLACEMENT VERIFIED VIA CXR
--- NOTE | 2019-09-27 15:41 | NUR ---
Director Of Entertainment reached out to Patient's bridge gang worker via In-Home Support Service Main Line . This SW spoke to JHON Azevedo. Social Workers name is Evangelista Dangelo. JHON Azevedo informed this SW that she was not able to provide Evangelista Dangelo's contact information as he is currently using a personal cell. This SW explained that we need more information regarding this patient from the SW Evangelista Dangelo. JHON Azevedo informed this SW that Evangelista Dangelo will reach out in 2-3 days to this SW at . JHON Azevedo was able to provide this patient's caregiver information. The patient's caregiver is Antonio Martínez. This SW contacted Antonio Martínez at (cell) and (home). JHON was not able to speak to Antonio Martínez and left a voicemail. JHON Azevedo from In-Home Support Services also provided an email [email or web address]. JHON to follow up with the caregiver again tomorrow 09/27. JHON remains available regarding all needs to this patient.
--- NOTE | 2019-09-27 16:23 | NUR ---
COLLECTED STOOL FOR OCCULT BLOOD, CONTACTED LAB FOR LETTER OF CREDIT CLERK
[2019-09-27 18:59] LABS: HEMOGLOBIN 8.8 g/dL (13.5-17.5)
--- NOTE | 2019-09-27 19:00 | NUR ---
RN CLOSING NOTE: PATIENT REMAINS IN BED. NO SIGNS OF ACUTE DISTRESS NOTED AT THIS TIME. CONTINUING WARMING INTERVENTIONS. PATIENT STILL ON LEVOPHED FOR BP MAINTENANCE. SB IN THE 50S NOTED ON THE BEDSIDE MONITOR. SAFETY MEASURES IMPLEMENTED, BED IN LOWEST POSITION, LOCKED, SIDE RAILS UP, CALL LIGHT WITHIN REACH. WILL ENDORSE TO ONCOMING SHIFT RN FOR CONTINUITY OF CARE.
[2019-09-27 19:36] LABS: OCCULT BLOOD STOOL NEGATIVE (NEGATIVE)
--- NOTE | 2019-09-27 19:40 | NUR ---
RN NOTES RECEIVED PATIENT ASLEEP ON BED. BREATHING EVEN AND UNLABORED. AFEBRILE. RESPONSIVE TO TOUCH. , NO SOB ON O2 2LPM VIA NC SATURATION 100% SB HR 50'S ON TELE MONITOR. IV SITE ON RAC , LAC, AND RIGHT ARM PICC LINE WITH LEVOPHED AND D51/2 NS TITRATED ORDERED. TEMPERATURE 96.2 VIA RECTAL TEMP. WARMER BLANKET KEPT IN PLACED. F/C DRAINED WITH YELLOW COLOR URINE. KEPT PT CLEAN AND DRY. TURN AND REPOSITION Q2H AND PRN. KEPT PT CLEAN AND DRY. WILL CONTINUE TO MONITOR.
[2019-09-27] MEDS: CEFEPIME 2 GM in IV D5W 100 ML IV SCH (21:26)
[2019-09-28] VITALS (93 sets, daily range): BP systolic 75–141; BP diastolic 21–65
--- NOTE | 2019-09-28 | NUR ---
RN NOTES PATIENT TEMPERATURE WENT UP TO 99.2 VIA RECTAL CHECK ON AXILLA MANUALLY PATIENT TEMP 99. DEG FHARENHEIGHT. WARM BLANKET REMOVED. WILL CONTINUE TO MONITOR.
[2019-09-28] MEDS: VANCOMYCIN 0.75 GM in IV D5W 250 ML IV SCH (01:24)
[2019-09-28] MEDS: HEPARIN SODIUM, PORCINE 5000 UNITS/1 ML VIAL SQ SCH ×3 (01:24→16:46)
[2019-09-28] MEDS: IV D5/0.45 NACL 1,000 ML IV PRN ×3 (02:01→22:21)
[2019-09-28 04:47] LABS: BASOPHILS % (AUTO) 0.2 % (0.0-2.0); HEMATOCRIT 24 % (39-51); HEMOGLOBIN 7.8 g/dL (13.5-17.5); LYMPHOCYTES # (AUTO) 1.1 /CMM (0.8-4.8); LYMPHOCYTES % (AUTO) 14.5 % (20.0-44.0); MEAN CORPUSCULAR HGB CONC 33 g/dl (31.0-36.0); MEAN CORPUSCULAR VOLUME 96 fL (80-96); MONOCYTES # (AUTO) 0.2 /CMM (0.1-1.30); MONOCYTES % (AUTO) 2.1 % (2.0-12.0); NEUTROPHILS # (AUTO) 6.2 /CMM (1.8-8.9); NEUTROPHILS % (AUTO) 83.2 % (43.0-81.0); PLATELET COUNT (AUTO) 239 /CMM (150-450); RED BLOOD CELL COUNT(AUTO) 2.51 MIL/uL (4.5-6.0); WHITE BLOOD COUNT (AUTO) 7.5 K/uL (4.3-11.0)
[2019-09-28 04:57] LABS: CALCIUM, SERUM 8.4 mg/dL (8.5-10.1); CARBON DIOXIDE 25 mmol/L (21-32); CHLORIDE 121 mmol/L (98-107); GLUCOSE 292 mg/dL (74-106); POTASSIUM 3.1 mmol/L (3.5-5.1); SODIUM SERUM 153 mmol/L (136-145); UREA NITROGEN, BLOOD 42 mg/dL (7-18)
[2019-09-28] MEDS: HYDROCORTISONE SOD SUCCINATE 100 MG/2 ML VIAL IV SCH ×3 (05:54→20:45)
--- NOTE | 2019-09-28 07:04 | NUR ---
RN NOTES PATIENT ASLEEP WELL MORE ACTIVE AND COMMUNICATIVE AT THIS TIME, ANSWER SOME QUESTION AND COMMAND. SMILE ON NURSES. STILL WITH EPISODE OF HYPOTENSION. LEVOPHED RESTARTED TITRATED ORDERED. MEI CATH DRAINED VIA GRAVITY. IV SITE REMAINED INTACT AND PATENT IVF ONGOING AND LEVOPHES. KEPT PT CLEAN AND DRY. ORAL CARE PROVIDED FREQUENTLY. TURNED AN REPOSITIONED Q2H AND PRN
[2019-09-28] MEDS: PANTOPRAZOLE 40 MG TABLET.DR PO SCH (07:30)
--- NOTE | 2019-09-28 07:30 | NUR ---
RN OPENING NOTE: RECEIVED PATIENT IN BED THIS MORNING. PATIENT IS CURRENTLY SLEEPING AT THIS TIME BUT SEEMS A BIT LESS LETHARGIC THAN YESTERDAY MORNING. RUNNING ON O2 2L/MIN VIA NC, SATING WELL. NO SIGNS OF ACUTE DISTRESS NOTED AT THIS TIME. PATIENT IS ON LEVO TO KEEP REGULATE BP. SINUS MARY IN THE 40S-50S ON BEDSIDE MONITOR. WOUND CARE PER ORDERS. PATIENT HAS MEI, DRAINING URINE. #20 LAC, #20 RAC, DAX PICC LINE, C/D/I, FLUSHING WELL, NO SIGNS OF COMPLICATIONS NOTED. SAFETY MEASURES IMPLEMENTED, BED IN LOWEST POSITION, LOCKED, SIDE RAILS UP, CALL LIGHT WITHIN REACH. WILL CONTINUE TO MONITOR PATIENT FOR CHANGES.
[2019-09-28 08:14] LABS: PTH, INTACT 8 pg/mL (15-65)
[2019-09-28] MEDS: POTASSIUM CL. PREMIX PERIPHER. 50 ML IV SCH ×6 (08:27→14:01)
[2019-09-28] MEDS ORDERED: POTASSIUM PHOSPHATE MM 5 MMOL in IV NS 0.9% 100 ML IV SCH (11:00)
--- NOTE | 2019-09-28 13:23 | NUR ---
PER ST, PATIENT HIGH R/F ASPIRATION, EVEN ON NECTAR THICK AND TO REMAIN NPO FOR NOW.
[2019-09-28 17:12] LABS: *SPE A/G RATIO 0.7 (0.7-1.7); *SPE ALBUMIN 1.9 g/dL (2.9-4.4); *SPE ALPHA-1-GLOBULIN 0.4 g/dL (0.0-0.4); *SPE ALPHA-2-GLOBULIN 0.6 g/dL (0.4-1.0); *SPE BETA GLOBULIN 0.6 g/dL (0.7-1.3); *SPE GLOBULIN, TOTAL 2.7 g/dL (2.2-3.9); *SPE M-SPIKE Not Observed g/dL (Not Observed)
[2019-09-28 18:32] LABS: HEMOGLOBIN 8.2 g/dL (13.5-17.5)
--- NOTE | 2019-09-28 19:06 | NUR ---
RN CLOSING NOTE: PATIENT REMAINS IN BED. NO SIGNS OF ACUTE DISTRESS NOTED AT THIS TIME. SINUS MARY IN THE 50S ON BEDSIDE MONITOR. SAFETY MEASURES IMPLEMENTED, BED IN LOWEST POSITION, LOCKED, SIDE RAILS UP, CALL LIGHT WITHIN REACH. ENDORSED TO SAIDA CAREY FOR CONTINUITY OF CARE.
--- NOTE | 2019-09-28 19:10 | NUR ---
WEB OPERATIONS MANAGER OPENING NOTES: Rec'd pt awake in bed, A&Ox1. On 2LPM NC tolerating well, no SOB or respiratory distress noted. SB/SR on tele monitor. IV sites on RAC #20, LAC #20 and DAX PICC line. Levophed infusing at 0.2mcg/kg/min to maintain MAP >65. Will titrate per protocol. D5 1/2NS infusing at 75ml/hr. On TWISTER OPERATOR restraints. Will remove and check circulation per protocol. On bare hugger for low temp. Addison cath in place, patent and draining urine. Currently NPO status. Safety measures in place. Will continue to monitor. Addendum: 09/28/19 at 2058 by AURELIO PAZ RN Levo order to maintain SBP >90.
[2019-09-28] MEDS: MUPIROCIN OINT 2% 22 GM TUBE NS SCH (20:45)
[2019-09-28] MEDS: CEFEPIME 2 GM in IV D5W 100 ML IV SCH (21:00)
[2019-09-29] VITALS (80 sets, daily range): BP systolic 87–161; BP diastolic 39–114
[2019-09-29] MEDS: HEPARIN SODIUM, PORCINE 5000 UNITS/1 ML VIAL SQ SCH ×3 (01:08→17:25)
--- NOTE | 2019-09-29 01:27 | NUR ---
DEVELOPMENT ASSISTANT NOTE: Pt noted w/ LAC #20 leaking and dislodged. Pulled IV out and applied pressure. Will continue to monitor.
[2019-09-29 04:22] LABS: BASOPHILS % (AUTO) 0.1 % (0.0-2.0); HEMATOCRIT 23 % (39-51); HEMOGLOBIN 7.5 g/dL (13.5-17.5); LYMPHOCYTES # (AUTO) 0.9 /CMM (0.8-4.8); LYMPHOCYTES % (AUTO) 11.1 % (20.0-44.0); MEAN CORPUSCULAR HGB CONC 33 g/dl (31.0-36.0); MEAN CORPUSCULAR VOLUME 95 fL (80-96); MONOCYTES # (AUTO) 0.2 /CMM (0.1-1.30); NEUTROPHILS % (AUTO) 85.8 % (43.0-81.0); PLATELET COUNT (AUTO) 216 /CMM (150-450); RED BLOOD CELL COUNT(AUTO) 2.43 MIL/uL (4.5-6.0); WHITE BLOOD COUNT (AUTO) 8.2 K/uL (4.3-11.0)
[2019-09-29] MEDS: HYDROCORTISONE SOD SUCCINATE 100 MG/2 ML VIAL IV SCH ×3 (04:24→21:13)
[2019-09-29 04:31] LABS: ALANINE AMINOTRANSFERASE 21 U/L (12-78); ALBUMIN 1.7 g/dL (3.4-5.0); ALKALINE PHOSPHATASE 82 U/L (46-116); ASPARTATE AMINOTRANSFERASE 16 U/L (15-37); BILIRUBIN,TOTAL 0.3 mg/dL (0.2-1.0); CALCIUM, SERUM 8.2 mg/dL (8.5-10.1); CARBON DIOXIDE 23 mmol/L (21-32); CHLORIDE 122 mmol/L (98-107); CREATININE 1.7 mg/dL (0.6-1.3); GLUCOSE 199 mg/dL (74-106); MAGNESIUM 2.1 mg/dL (1.8-2.4); PHOSPHORUS 2.2 mg/dL (2.5-4.9); POTASSIUM 3.9 mmol/L (3.5-5.1); SODIUM SERUM 151 mmol/L (136-145); TOTAL PROTEIN, SERUM 4.9 g/dL (6.4-8.2); UREA NITROGEN, BLOOD 35 mg/dL (7-18)
[2019-09-29 05:54] LABS: BAND % (MANUAL) 4 % (0.0-5.0); LYMPHOCYTES % (MANUAL) 7 % (16-48); MONOCYTES % (MANUAL) 3 % (0-11.0); NEUTROPHILS % (MANUAL) 86 (42-76)
--- NOTE | 2019-09-29 06:51 | NUR ---
MANUFACTURING PLANNER CLOSING NOTES: Pt remains in stable condition. No acute changes noted throughout shift. On 2LPM NC tolerating well. No SOB or respiratory distress noted throughout shift. LANDFILL ATTENDANT restraints remain in place. Levo infusing at 0.02 mcg/kg/min. Titrated to maintain SBP >90. D5 1/2 NS infusing at 75ml/hr. Addison in place patent and draining urine. All meds administered as ordered. Kept clean/dry. Safety measures in place. Will endorse to AM nurse for THIEN.
[2019-09-29] MEDS: NOREPINEPHRINE 8 MG in IV NS 0.9% 242 ML IV PRN (07:10)
[2019-09-29] MEDS: PANTOPRAZOLE 40 MG TABLET.DR PO SCH (07:30)
--- NOTE | 2019-09-29 08:00 | NUR ---
received pt from warehouse worker 2nd shift, a/o x1, does not follows commands, SR, on 2L 02 sat well, NPO failed swallow evaluation 09/27, f/c OK output, 1BM, restraints on, receiving levo at 0.02mcg, v/s stable, no pain, pt turned and repositioned.
[2019-09-29] MEDS: MUPIROCIN OINT 2% 22 GM TUBE NS SCH ×2 (08:10→21:14)
[2019-09-29] MEDS ORDERED: POTASSIUM PHOSPHATE MM 15 MMOL in IV NS 0.9% 250 ML IV SCH (10:00)
[2019-09-29] MEDS: VANCOMYCIN 0.75 GM in IV D5W 250 ML IV SCH (13:28)
[2019-09-29] MEDS: IV D5/0.45 NACL 1,000 ML IV PRN (14:55)
--- NOTE | 2019-09-29 16:28 | NUR ---
pt is resting in the bed, awake, does not follow commands, confused, SR, SB, on 2L 02 sat well, NPO, failed swallow eval, f/c good urine output, v/s stable, no pain, pt cleaned, changed and repositioned q2hrs.
--- NOTE | 2019-09-29 19:10 | NUR ---
OUTPATIENT CODER OPENING NOTES: Rec'd pt resting in bed, A&Ox1. On 2LPM NC tolerating well. No SOB or respiratory distress noted. SR/SB on tele monitor. IV site on RAC #20 and DAX PICC line patent and flushed. Dressings c/d/i. D5 1/2NS infusing at 75ml/hr. On LIQUID NATURAL GAS PLANT OPERATOR restraints. Will remove and check circulation per protocol. Currently NPO. Safety measures in place. Will continue to monitor. Addendum: 09/29/19 at 1937 by AURELIO PAZ RN Addison cath in place patent and draining urine via gravity
[2019-09-29] MEDS: CEFEPIME 2 GM in IV D5W 100 ML IV SCH (21:13)
[2019-09-30] VITALS (23 sets, daily range): BP systolic 112–131; BP diastolic 51–66
[2019-09-30] MEDS: HEPARIN SODIUM, PORCINE 5000 UNITS/1 ML VIAL SQ SCH ×3 (00:47→16:28)
[2019-09-30 03:57] LABS: BASOPHILS % (AUTO) 0.1 % (0.0-2.0); HEMATOCRIT 23 % (39-51); HEMOGLOBIN 7.7 g/dL (13.5-17.5); LYMPHOCYTES # (AUTO) 0.7 /CMM (0.8-4.8); LYMPHOCYTES % (AUTO) 13.3 % (20.0-44.0); MEAN CORPUSCULAR HGB CONC 33 g/dl (31.0-36.0); MEAN CORPUSCULAR VOLUME 95 fL (80-96); MONOCYTES # (AUTO) 0.2 /CMM (0.1-1.30); MONOCYTES % (AUTO) 4.1 % (2.0-12.0); NEUTROPHILS # (AUTO) 4.4 /CMM (1.8-8.9); NEUTROPHILS % (AUTO) 82.5 % (43.0-81.0); PLATELET COUNT (AUTO) 185 /CMM (150-450); RED BLOOD CELL COUNT(AUTO) 2.47 MIL/uL (4.5-6.0); WHITE BLOOD COUNT (AUTO) 5.3 K/uL (4.3-11.0)
[2019-09-30 04:02] LABS: CALCIUM, SERUM 7.7 mg/dL (8.5-10.1); CARBON DIOXIDE 21 mmol/L (21-32); CHLORIDE 121 mmol/L (98-107); CREATININE 1.4 mg/dL (0.6-1.3); GLUCOSE 177 mg/dL (74-106); POTASSIUM 3.7 mmol/L (3.5-5.1); SODIUM SERUM 152 mmol/L (136-145); UREA NITROGEN, BLOOD 30 mg/dL (7-18)
[2019-09-30] MEDS: IV D5/0.45 NACL 1,000 ML IV PRN (04:15)
[2019-09-30] MEDS: HYDROCORTISONE SOD SUCCINATE 100 MG/2 ML VIAL IV SCH ×3 (04:42→20:10)
--- NOTE | 2019-09-30 06:51 | NUR ---
BOILER OPERATORS SUPERVISOR CLOSING NOTES: Pt remained stable throughout shift. No SOB or respiratory distress noted throughout shift. No acute changes noted throughout shift. SR/SB w/ BBB on tele monitor. IV lines patent and flushed. MIGRATORY WORKER restraints remain in place. Addison in place draining urine. Kept clean and dry. All meds given as ordered. Safety measures in place. Will endorse to AM nurse for THIEN.
[2019-09-30] MEDS: PANTOPRAZOLE 40 MG TABLET.DR PO SCH (07:30)
--- NOTE | 2019-09-30 08:00 | NUR ---
ICU/EDGAR RN OPENING NOTES: Pt IS resting in bed, A&Ox1. On 2LPM NC tolerating well. No SOB or respiratory distress noted. SR/SB on tele monitor. IV site on RAC #20 and DAX PICC line patent and flushed well and intact. Dressings c/d/i. D5 1000ml infusing at 75ml/hr. On TRANSLATOR/INTERPRETER restraints. Will remove and check circulation per protocol. Currently NPO. Safety measurements are implemented and rails are up x2. call light within reach.Will continue to monitor.
[2019-09-30] MEDS: MUPIROCIN OINT 2% 22 GM TUBE NS SCH ×2 (08:22→20:11)
[2019-09-30] MEDS: IV D5W 1,000 ML IV SCH ×2 (10:18→22:46)
--- NOTE | 2019-09-30 11:10 | NUR ---
ICU/EDGAR RN NOTES PT IS READY TO BE TRANSFERED TO TELE ROOM # 311-1. PT IS STABLE
--- NOTE | 2019-09-30 12:45 | NUR ---
EDGAR ASSISTANT CHIEF OF POLICE NOTES PT IS STABLE TO TRANSFER WITH ACLS PROTOCOL. PT WAS TRANSFERRED SAFELY TO [facility]- TO [facility] FOR CONTINUE TO THIEN
--- NOTE | 2019-09-30 12:52 | NUR ---
DISCHARGE DOOR OPERATOR NOTES PT TRANSFERRED FROM ICU TO UNIT AT 1235 VIA PT'S BED ACCOMPANIED BY ICU NURSE ALESSANDRO. PT IS A/O X1. SLEEPY AND ESTONIAN SPEAKING. PT ORIENTED TO RM AND STAFF. ON O2 VIA N/C AT 2LPM, TOLERATING WELL WITH NO SOB NOTED. PT WITH DAX TIPPLE LUMEN PICC LINE WITH IVF OF D5W INFUSING AT 75ML/HR. PTBALSO HAS PIV ON RAC G#20 INTACT AND PATENT. PT PLACED ON TELEMONITORING WITH CURRENT READING OF SB WITH PAC'S AND BBB WITH HR ON THE 50'S. PT WITH MEI IN PLACE DRAINING CLEAR YELLOW URINE VIA GRAVITY. SAFETY MEASURES INITIATED: HOB KEPT ELEVATED. PT KEPT ON B/L SOFT WRIST RESTRAINTS TO PREVENT PULLING HIS LINES. BEB PLACED IN LOWEST LOCKED POSITION WITH SIDE RAILS UP X3. CALL LIGHT WITHIN REACH. WILL CONTINUE TO MONITOR.
[2019-09-30] MEDS: VANCOMYCIN 0.75 GM in IV D5W 250 ML IV SCH (13:05)
--- NOTE | 2019-09-30 18:35 | NUR ---
SENIOR ASSISTANT MANAGER CLOSING NOTES PT IN BED LYING COMFORTABLY AT MODERATE HIGH BACKREST POSITION. A/O X1. WELSH SPEAKING. ON O2 VIA N/C AT 2LPM, TOLERATING WELL WITH NO SOB NOTED. DAX TIPPLE LUMEN PICC LINE IN PLACE WITH IVF OF D5W INFUSING AT 75ML/HR. PT ALSO HAS PIV ON RAC G#20 INTACT AND PATENT. ON TELE-MONITORING WITH CURRENT READING OF SB WITH PAC'S AND HR ON THE 50'S. PT WITH MEI IN PLACE DRAINING CLEAR YELLOW URINE VIA GRAVITY, MEI CARE DONE. PT TURNED AND REPOSITIONED Q 2HRS AND PRN. ALL NEEDS AND CARE PROVIDED WELL. SAFETY MEASURES KEPT IN PLACE: HOB KEPT ELEVATED. B/L SOFT WRIST RESTRAINTS IN PLACE TO PREVENT PULLING HIS LINES. BED IN LOWEST LOCKED POSITION WITH SIDE RAILS UP X3. CALL LIGHT WITHIN REACH. WILL ENDORSE TO REVENUE ACCOUNTING MANAGER NURSE FOR THIEN
--- NOTE | 2019-09-30 19:15 | NUR ---
finish saw operator opening notes Received Pt from morning nurse. Pt is resting in bed comfortably. Pt is alert and orientedX1. Pt speaks Welsh and able to make needs known. Respiration is normal and unlabored. No SOB. No S/S of distress noted. tele monitor showed S emanuel Hr at 51 bpm. PICC DAX is clean, intact and patent. RAC# 20 is clean, intact and infusing well D5W@ 75 ml/hr. Addison cath is intact and draining yellow urine. Bilateral soft wrists restraints is in placed, intact, skin is warm to touch and circulation is check. Keep Pt clean, dry and comfortable. Safety precautions is maintained. Bed at low position, brakes locked, side rails upX3 and call light is within reach. Will continue to monitor.
[2019-09-30] MEDS: CEFEPIME 2 GM in IV D5W 100 ML IV SCH (20:09)
[2019-10-01] VITALS: BP 114/64
[2019-10-01] MEDS: HEPARIN SODIUM, PORCINE 5000 UNITS/1 ML VIAL SQ SCH ×3 (00:13→17:19)
[2019-10-01 04:00] VITALS: BP 127/66
[2019-10-01] MEDS: HYDROCORTISONE SOD SUCCINATE 100 MG/2 ML VIAL IV SCH ×3 (04:05→21:19)
--- NOTE | 2019-10-01 06:40 | NUR ---
vocational counselor closing notes Pt is resting in bed comfortably. Pt is alert and orientedX1. Pt speaks Irish and able to make needs known. Respiration is normal and unlabored. No SOB. No S/S of distress noted. Vs is stable. Afebrile. Tele monitor showed S emanuel. Routine meds were given as ordered. PICC DAX is clean, intact and patent. RAC# 20 is clean, intact and infusing well D5W@ 75 ml/hr. Addison cath is intact and draining yellow urine. Bilateral soft wrists restraints is in placed, intact, skin is warm to touch and circulation is check. Kept Pt clean, dry and comfortable. All needs met and attended. Safety precautions is maintained. Bed at low position, brakes locked, side rails upX3, HOB elevated and call light is within reach. Will endorse to morning nurse for THIEN.
[2019-10-01 07:19] LABS: BASOPHILS % (AUTO) 0.1 % (0.0-2.0); HEMATOCRIT 28 % (39-51); HEMOGLOBIN 9.3 g/dL (13.5-17.5); LYMPHOCYTES # (AUTO) 0.8 /CMM (0.8-4.8); LYMPHOCYTES % (AUTO) 7.9 % (20.0-44.0); MEAN CORPUSCULAR HGB CONC 33 g/dl (31.0-36.0); MEAN CORPUSCULAR VOLUME 94 fL (80-96); MONOCYTES # (AUTO) 0.5 /CMM (0.1-1.30); MONOCYTES % (AUTO) 5.1 % (2.0-12.0); NEUTROPHILS # (AUTO) 8.5 /CMM (1.8-8.9); NEUTROPHILS % (AUTO) 86.9 % (43.0-81.0); PLATELET COUNT (AUTO) 183 /CMM (150-450); WHITE BLOOD COUNT (AUTO) 9.8 K/uL (4.3-11.0)
[2019-10-01 07:23] LABS: CALCIUM, SERUM 7.5 mg/dL (8.5-10.1); CREATININE 1.2 mg/dL (0.6-1.3); POTASSIUM 3.3 mmol/L (3.5-5.1)
--- NOTE | 2019-10-01 07:30 | NUR ---
RN OPENING NOTES RECEIVED PT IN BED LYING COMFORTABLY IN BED. PT IS ASLEEP BUT EASILY AROUSABLE TO VERBAL AND TACTILE STIMULI. PT IS JAPANESE SPEAKING BUT ALSO ABLE TO SPEAK K[place]AK[place]. UNDERSTANDS SOME KYRGYZ BUT VERY MINIMAL. ABLE TO FOLLOW SIMPLE COMMANDS. NO CARDIAC OR RESPIRATORY DISTRESS NOTED. NO SOB NOTED. SATURATING WELL ON ROOM AIR. BREATHING EVEN AND UNLABORED. ON CARDIAC TELE MONITOR SHOWING SINUS MARY WITH CURRENT HR OF 56. MEI CATH PRESENT. INTACT AND PATENT AND DRAINING WITH CLEAR YELLOW URINE. IV ACCESS NOTED ON R UPPER ARM PICC LINE AND R AC G20. BOTH IV ACCESS INTACT AND PATENT AND FLUSHING WELL. WITH D5W RUNNING AT 75ML/HR. TOLERATING IV FLUIDS WELL. BILATERAL SOFT WRIST RESTRAINTS NOTED TO PREVENT PULLING OUT OF TUBES AND LINES. NO S/S OF SKIN BREAKDOWN UNDERNEATH RESTRAINTS. WRIST RESTRAINTS NOTED WITH 2 FINGERBREADTHS IN BETWEEN SKIN. SAFETY PRECAUTIONS IN PLACE. BED LOCKED AND IN LOW POSITION. SIDE RAILS UP X2. BED ALARM ON. CALL LIGHT WITHIN REACH. WILL CONT TO MONITOR.
[2019-10-01 08:00] VITALS: BP 110/64
[2019-10-01] MEDS: PANTOPRAZOLE 40 MG TABLET.DR PO SCH (08:23)
[2019-10-01] MEDS: MUPIROCIN OINT 2% 22 GM TUBE NS SCH ×2 (08:25→21:26)
[2019-10-01] MEDS ORDERED: POTASSIUM CHLORIDE 20 MEQ POWDER PACKET PO ONE (10:00)
[2019-10-01] MEDS: IV D5W 1,000 ML IV PRN (10:18)
--- NOTE | 2019-10-01 11:00 | NUR ---
K+ REPLACEMENT K+ REPLACED TODAY. PT WAS GIVEN KCL 20MEQ POWDER PACKET X 1 DOSE SECONDARY TO K+ LEVEL OF 3.3.
[2019-10-01] MEDS: VANCOMYCIN 0.75 GM in IV D5W 250 ML IV SCH (13:27)
[2019-10-01 16:00] VITALS: BP 129/63
--- NOTE | 2019-10-01 19:10 | NUR ---
RECEIVE PT A/O X1 MONGOLIAN SPEAKING 1:1 SITTER AT BEDSIDE, 2LPM VIA NC 02 SAT 95%. REMOVED & DC'D BILATERAL SOFT WRIST RESTRAINT ASSESS FOR RANGE OF MOTION AND EXERCISE HAND ABLE TO MOVE FREELY NO S/S OF IMPAIRED CIRCULATION, DAX PICC LINE IN PLACE DRY DRESSING AND INTACT. NO NOTED PIV AT RAC 20 PREVIOUS RN REMOVED IT. WITNESS BY SITTER. SAFETY MEASURES IN PLACE. WILL CONT TO MONITOR
--- NOTE | 2019-10-01 19:35 | NUR ---
RN CLOSING NOTES PT IN BED LYING COMFORTABLY IN BED. PT IS ASLEEP BUT EASILY AROUSABLE TO VERBAL AND TACTILE STIMULI. PT IS SYRIAC SPEAKING BUT ALSO ABLE TO SPEAK ETHIOPIAN. UNDERSTANDS SOME [place] BUT VERY MINIMAL. ABLE TO FOLLOW SIMPLE COMMANDS. NO CARDIAC OR RESPIRATORY DISTRESS NOTED. NO SOB NOTED. SATURATING WELL ON ROOM AIR. BREATHING EVEN AND UNLABORED. ON CARDIAC TELE MONITOR SHOWING SINUS MARY WITH CURRENT HR OF 56. MEI CATH PRESENT. INTACT AND PATENT AND DRAINING WITH CLEAR YELLOW URINE. IV ACCESS NOTED ON R UPPER ARM PICC LINE AND R AC G20. BOTH IV ACCESS INTACT AND PATENT AND FLUSHING WELL. WITH D5W RUNNING AT 75ML/HR. TOLERATING IV FLUIDS WELL. BILATERAL SOFT WRIST RESTRAINTS NOTED TO PREVENT PULLING OUT OF TUBES AND LINES. NO S/S OF SKIN BREAKDOWN UNDERNEATH RESTRAINTS. WRIST RESTRAINTS NOTED WITH 2 FINGERBREADTHS IN BETWEEN SKIN. PT NOTED WITH MINIMAL SWELLING ON L HAND. KEPT ELEVATED TO PILLOWS. PT ABLE TO PERFORM ACTIVE RANGE OF MOTION TO L HAND/WRIST WITH NO PAIN OR DIFFICULTIES. SAFETY PRECAUTIONS IN PLACE. BED LOCKED AND IN LOW POSITION. SIDE RAILS UP X2. BED ALARM ON. CALL LIGHT WITHIN REACH. WILL CONT TO MONITOR.
[2019-10-01 20:14] VITALS: BP 128/63
[2019-10-01] MEDS: CEFEPIME 2 GM in IV D5W 100 ML IV SCH (21:19)
[2019-10-02] MEDS: IV D5W 1,000 ML IV PRN (00:40)
[2019-10-02] MEDS: HEPARIN SODIUM, PORCINE 5000 UNITS/1 ML VIAL SQ SCH ×3 (00:41→17:22)
--- NOTE | 2019-10-02 01:00 | NUR ---
MS RN SLEEPING AT THIS TIME. CALM NO S/S OF DISTRESS, 1:1 SITTER AT BEDSIDE.
[2019-10-02] MEDS: HYDROCORTISONE SOD SUCCINATE 100 MG/2 ML VIAL IV SCH ×2 (05:25→17:16)
--- NOTE | 2019-10-02 06:05 | NUR ---
MS RN ASLEEP AND EASILY AWAKEN, 1:1 SITTER AT BEDSIDE,ASPIRATION PRECAUTION AT ALL TIMES.MONITORED FOR INTAKE. PT ENCOURAGE PO INTAKE TOLERATED, DAX PICC LINE DRESSING INTACT AND PATENT, PT MONITORED ACCORDINGLY, 2LPM VIA NC 02 SAT AT 97%. KEPT CLEAN, DRY AND COMFORTABLE. NOT IN DISTRESS, AM CARE RENDERED, OFFLOAD HEELS AND ELBOWS AT ALL TIMES. SAFETY MEASURES AT ALL TIMES. WILL ENDORSE TO NEXT SHIFT.
[2019-10-02 06:35] LABS: BASOPHILS % (AUTO) 0.1 % (0.0-2.0); HEMATOCRIT 28 % (39-51); HEMOGLOBIN 9.2 g/dL (13.5-17.5); LYMPHOCYTES # (AUTO) 0.8 /CMM (0.8-4.8); LYMPHOCYTES % (AUTO) 6.5 % (20.0-44.0); MEAN CORPUSCULAR HGB CONC 33 g/dl (31.0-36.0); MEAN CORPUSCULAR VOLUME 94 fL (80-96); MONOCYTES # (AUTO) 0.4 /CMM (0.1-1.30); MONOCYTES % (AUTO) 3.5 % (2.0-12.0); NEUTROPHILS # (AUTO) 11.4 /CMM (1.8-8.9); NEUTROPHILS % (AUTO) 89.9 % (43.0-81.0); PLATELET COUNT (AUTO) 184 /CMM (150-450); RED BLOOD CELL COUNT(AUTO) 2.98 MIL/uL (4.5-6.0); WHITE BLOOD COUNT (AUTO) 12.7 K/uL (4.3-11.0)
[2019-10-02 06:51] LABS: CALCIUM, SERUM 7.3 mg/dL (8.5-10.1); CREATININE 1.1 mg/dL (0.6-1.3); MAGNESIUM 1.9 mg/dL (1.8-2.4); POTASSIUM 3.2 mmol/L (3.5-5.1)
--- NOTE | 2019-10-02 06:57 | NUR ---
MS RN RESUME ORDER OF BILATERAL SOFT WRIST RESTRAINT, NO SITTER AT THIS TIME. PT TRYING TO REMOVE PICC LINE DESPITE EXPLAINING RISKS AND BENEFITS.
--- NOTE | 2019-10-02 07:20 | NUR ---
RN OPENING NOTES PT IN BED LYING COMFORTABLY AT MODERATE HIGH BACKREST POSITION. A/O X1. KISWAHILI SPEAKING. ON O2 VIA N/C AT 2LPM, TOLERATING WELL WITH NO SOB NOTED. DAX TIPPLE LUMEN PICC LINE IN PLACE WITH IVF OF D5W INFUSING AT 75ML/HR. PT ALSO HAS PIV ON RAC G#20 INTACT AND PATENT. PT WITH MEI IN PLACE DRAINING CLEAR YELLOW URINE VIA GRAVITY, MEI CARE DONE. SAFETY MEASURES KEPT IN PLACE: HOB KEPT ELEVATED.
[2019-10-02 08:00] VITALS: BP 132/67
[2019-10-02] MEDS: PANTOPRAZOLE 40 MG TABLET.DR PO SCH (08:10)
[2019-10-02] MEDS: MUPIROCIN OINT 2% 22 GM TUBE NS SCH ×2 (08:10→20:25)
[2019-10-02] MEDS: POTASSIUM CHLORIDE 20 MEQ TAB.PRT.SR PO SCH ×2 (10:28→11:31)
[2019-10-02] MEDS: NEUTRA PHOS 1 POWD.PACKET PO SCH ×2 (10:32→17:38)
[2019-10-02] MEDS: VANCOMYCIN 0.75 GM in IV D5W 250 ML IV SCH (12:41)
[2019-10-02 16:00] VITALS: BP 122/64
--- NOTE | 2019-10-02 19:07 | NUR ---
RN CLOSING NOTES WILL ENDORSED TO PM NURSE. PT IN BED LYING COMFORTABLY AT MODERATE HIGH BACKREST POSITION. A/O X1. TAMAZIGHT SPEAKING. ON O2 VIA N/C AT 2LPM, TOLERATING WELL WITH NO SOB NOTED. DAX TIPPLE LUMEN PICC LINE IN PLACE WITH IVF OF D5W INFUSING AT 75ML/HR. PT ALSO HAS PIV ON RAC G#20 INTACT AND PATENT. PT WITH MEI IN PLACE DRAINING CLEAR YELLOW URINE VIA GRAVITY, MEI CARE DONE. SAFETY MEASURES KEPT IN PLACE: HOB KEPT ELEVATED.
--- NOTE | 2019-10-02 19:30 | NUR ---
RN PM MS OPENING NOTES REPORT RECIEVED FROM JOHN CINTRON. PT IN BED LYING COMFORTABLY AT SEMIFOWLERS POSITION. A/O X1. AZERI SPEAKING. ON O2 VIA N/C AT 2LPM, RESPE EVEN AND UNLABORED. DAX TIPPLE LUMEN PICC LINE IN PLACE HEPLOCKED. PT WITH MEI IN PLACE DRAINING CLEAR YELLOW URINE VIA GRAVITY, . SAFETY MEASURES IN PLACE, ASPIRATION PRECUATIONES IN PLACE PT HAS BILATERAL WRIST RESTRAINTS IN PLACE FOR PT TRYING TO GRAB TUBES AND LINES THAT ARE MEDICALLY NECESSARY. WILL CONT TO MONITOR PER PROTOCOL.
[2019-10-02] MEDS: CEFEPIME 2 GM in IV D5W 100 ML IV SCH (20:25)
[2019-10-02 20:35] VITALS: BP 107/51
[2019-10-03] MEDS: HEPARIN SODIUM, PORCINE 5000 UNITS/1 ML VIAL SQ SCH ×3 (02:00→16:20)
[2019-10-03 06:53] LABS: ALBUMIN 1.8 g/dL (3.4-5.0); BILIRUBIN,TOTAL 0.7 mg/dL (0.2-1.0); CALCIUM, SERUM 7.6 mg/dL (8.5-10.1); CREATININE 1.1 mg/dL (0.6-1.3); TOTAL PROTEIN, SERUM 4.9 g/dL (6.4-8.2)
--- NOTE | 2019-10-03 07:30 | NUR ---
MS/RN Patient received Patient received from mini shifter. A/O to self, soft wrist restraints removed as patient calm and cooperative at this time. Midline to right upper arm flushing well with normal saline. Addison catheter to gravity with minimal output at this time. Bed in low setting, side rails X3 in upright position, call light within reach. Bed alarm switched on for safety. Will continue to monitor and ensure safety.
[2019-10-03 07:33] LABS: POTASSIUM 2.8 mmol/L (3.5-5.1)
[2019-10-03 08:00] VITALS: BP 126/55
[2019-10-03] MEDS ORDERED: POTASSIUM CHLORIDE 20 MEQ TAB.PRT.SR PO ONE (08:00)
[2019-10-03] MEDS: HYDROCORTISONE SOD SUCCINATE 100 MG/2 ML VIAL IV SCH ×2 (08:14→16:19)
[2019-10-03] MEDS: PANTOPRAZOLE 40 MG TABLET.DR PO SCH (08:14)
[2019-10-03] MEDS: MUPIROCIN OINT 2% 22 GM TUBE NS SCH ×2 (08:15→21:48)
[2019-10-03] MEDS: POTASSIUM CL. PREMIX PERIPHER. 50 ML IV SCH ×5 (08:15→11:56)
--- NOTE | 2019-10-03 08:55 | NUR ---
MS/RN S/B Dr Saunders Seen by Dr Saunders - patient for possible discharge today back to SNF if able to tolerate diet.
--- NOTE | 2019-10-03 12:29 | NUR ---
MS/RN Speech therapy Seen by speech therapist - to remain on puree diet with honey thick liquids. Needs assistance with eating, strict aspiration precautions.
[2019-10-03] MEDS: VANCOMYCIN 0.75 GM in IV D5W 250 ML IV SCH (12:54)
--- NOTE | 2019-10-03 12:55 | NUR ---
MS/RN Germaineo Vancomycin administered as ordered, last trough 15 (10/01/19)
[2019-10-03] MEDS ORDERED: FUROSEMIDE 100 MG/10 ML VIAL IV ONE (14:00)
[2019-10-03 16:00] VITALS: BP 130/57
--- NOTE | 2019-10-03 18:25 | NUR ---
MS/RN End note Patient remains in stable condition. Restraints have not been required throughout the day as patient calm and cooperative. All medications administered as ordered, does not appear in any distress or discomfort. For possible discharge to home tomorrow.
--- NOTE | 2019-10-03 19:42 | NUR ---
MS RN NOTES PATIENT IN BED, AWAKE, ALERT AND ORIENTED X 1. SLOVENIAN SPEAKING ONLY. BREATHING EVEN AND UNLABORED ON 2L NC. SHOWS NO SIGNS OF ACUTE RESPIRATORY DISTRESS, NO ACUTE PAIN. FC CLEAN DRY AND INTACT. FLOWING YELLOW URINE. DAX PICC INTACT AND IN PLACE. SHOWS NO SIGNS OF INFILTRATION, NO REDNESS. SAFETY PRECAUTIONS IN PLACE. BED IN LOWEST POSITION, LOCKED, AND CALL LIGHT KEPT WITHIN REACH. RESTRAINTS CURRENTLY OFF. PT NOT PULLING ANY LINES. WILL CONTINUE TO MONITOR.
[2019-10-03 20:00] VITALS: BP 122/60
[2019-10-03] MEDS: CEFEPIME 2 GM in IV D5W 100 ML IV SCH (21:47)
--- NOTE | 2019-10-04 07:31 | NUR ---
MS RN OPENING NOTES RECEIVED PT AWAKE IN BED IN NO ACUTE SIGNS OF DISTRESS. A/O X1. UZBEK SPEAKING. QUIET, NO FACIAL GRIMACES OR S/S OF PAIN NOTED AT THIS TIME. ON O2 VIA N/C AT 2LPM, RESPIRATIONS EVEN AND UNLABORED. IV ACCESS ON RAC G#22 INTACT AND PATENT. PT WITH MEI IN PLACE DRAINING CLEAR YELLOW URINE VIA GRAVITY. SAFETY MEASURES IN PLACE: ASPIRATION PRECAUTION MAINTAINED, WRIST RESTRAINTS IN PLACE TO LEFT WRIST FOR PT TRYING TO GRAB TUBES AND LINES THAT ARE MEDICALLY NECESSARY, BED IN LOWEST LOCKED POSITION WITH SR UP X2. CALL LIGHT WITHIN REACH. WILL CONT TO MONITOR PT PER PROTOCOL.
--- NOTE | 2019-10-04 07:33 | NUR ---
MS RN NOTES PATIENT IN BED, ASLEEP, ALERT AND ORIENTED X 1. BULGARIAN SPEAKING ONLY. BREATHING EVEN AND UNLABORED ON 2L NC. SHOWS NO SIGNS OF ACUTE RESPIRATORY DISTRESS, NO ACUTE PAIN. FC CLEAN DRY AND INTACT. FLOWING YELLOW URINE. RAC 22G ITS CLEAN DRY AND INTACT. SHOWS NO SIGNS OF INFILTRATION, NO REDNESS. L WRIST RESTRAINT ON, SHOWS NO SIGNS OF POOR CIRCULATION, NO SKIN TEARS. ALL DUE MEDICATIONS GIVEN. SAFETY PRECAUTIONS IN PLACE. BED IN LOWEST POSITION, LOCKED, AND CALL LIGHT KEPT WITHIN REACH. PT NOT PULLING ANY LINES. WILL ENDORSE TO ONCOMING NURSE.
[2019-10-04 07:40] LABS: BASOPHILS % (AUTO) 0.1 % (0.0-2.0); EOSINOPHILS % (AUTO) 0.1 % (0.0-6.0); HEMATOCRIT 31 % (39-51); HEMOGLOBIN 10.2 g/dL (13.5-17.5); LYMPHOCYTES # (AUTO) 1.3 /CMM (0.8-4.8); LYMPHOCYTES % (AUTO) 6.7 % (20.0-44.0); MEAN CORPUSCULAR HGB CONC 33 g/dl (31.0-36.0); MEAN CORPUSCULAR VOLUME 93 fL (80-96); MONOCYTES # (AUTO) 0.6 /CMM (0.1-1.30); MONOCYTES % (AUTO) 3.4 % (2.0-12.0); NEUTROPHILS % (AUTO) 89.7 % (43.0-81.0); PLATELET COUNT (AUTO) 219 /CMM (150-450); RED BLOOD CELL COUNT(AUTO) 3.34 MIL/uL (4.5-6.0); WHITE BLOOD COUNT (AUTO) 18.9 K/uL (4.3-11.0)
[2019-10-04 07:59] LABS: ALANINE AMINOTRANSFERASE 38 U/L (12-78); ALKALINE PHOSPHATASE 108 U/L (46-116); ASPARTATE AMINOTRANSFERASE 29 U/L (15-37); BILIRUBIN,TOTAL 0.9 mg/dL (0.2-1.0); CALCIUM, SERUM 7.5 mg/dL (8.5-10.1); CARBON DIOXIDE 20 mmol/L (21-32); CHLORIDE 116 mmol/L (98-107); CREATININE 1.5 mg/dL (0.6-1.3); GLUCOSE 96 mg/dL (74-106); MAGNESIUM 1.9 mg/dL (1.8-2.4); PHOSPHORUS 2.3 mg/dL (2.5-4.9); POTASSIUM 3.3 mmol/L (3.5-5.1); SODIUM SERUM 147 mmol/L (136-145); TOTAL PROTEIN, SERUM 5.3 g/dL (6.4-8.2); UREA NITROGEN, BLOOD 19 mg/dL (7-18)
[2019-10-04 08:00] VITALS: BP 131/70
[2019-10-04] MEDS: PANTOPRAZOLE 40 MG TABLET.DR PO SCH (08:07)
[2019-10-04] MEDS: HYDROCORTISONE SOD SUCCINATE 100 MG/2 ML VIAL IV SCH (08:07)
[2019-10-04] MEDS: MUPIROCIN OINT 2% 22 GM TUBE NS SCH (08:08)
[2019-10-04 09:32] LABS: LYMPHOCYTES % (MANUAL) 3 % (16-48); MONOCYTES % (MANUAL) 3 % (0-11.0); NEUTROPHILS % (MANUAL) 94 (42-76)
[2019-10-04] MEDS: POTASSIUM CHLORIDE 20 MEQ TAB.PRT.SR PO SCH ×3 (09:58→11:54)
[2019-10-04] MEDS ORDERED: CEFE1VIA3 IJ (11:15)
--- NOTE | 2019-10-04 11:54 | NUR ---
RN NOTES PT NOTED WITH LOW K 3.3. ADMINISTERED KDUR 20MEQ TABS X3 DOSES ASPER MD ORDER. WILL CONTINUE TO MONITOR.
[2019-10-04] MEDS: VANCOMYCIN 0.75 GM in IV D5W 250 ML IV SCH (12:22)
[2019-10-04] MEDS ORDERED: NEUTRA PHOS 1 POWD.PACKET PO ONE (14:00)
--- NOTE | 2019-10-04 15:56 | NUR ---
RN DISCHARGED NOTES PT DISCHARGED TO [facility]. REPORT GIVEN TO RNS NICOLE. CALLED PT'S SON MICHELL AT [facility] # [phone] BUT UNABLE TO REACH AND LEFT MESSAGE. PT IS A/O X1-2. MONGOLIAN SPEAKING. V/S TAKEN, STABLE AND RECORDED. PHOTOS OF SKIN ISSUES TAKEN AND FILED IN PT'S CHART. PT HAS NO BELONGINGS. IV ACCESS ON RAC G#22 NOT REMOVED, PT WILL CONTINUE WITH IV ATB OF MAXIPINE 1GM DAILY X 3 MORE DAYS. MEI KEPT IN PLACE WITH CLEAR YELLOW URINE OUTPUT NOTED. EXIT CARE FOLDER GIVEN TO PARAMEDICS. PT LEFT UNIT 1550 VIA GURNEY AND PORTABLE 02 VIA N/C ACCOMPANIED BY 2 EMT'S FROM [facility]. MD AND CHARGE NURSE AWARE OF DISCHARGE.
[2019-10-14] MEDS ORDERED: ASCO-352 PO (18:50)
[2019-10-14] MEDS ORDERED: AMIN30LI2 PO (18:50)
[2019-10-14] MEDS ORDERED: DOCU-141 PO (18:50)
[2019-10-14] MEDS ORDERED: MULT-447 PO (18:50)
[2019-10-14] MEDS ORDERED: ZINC1CAP2 PO (18:50)
[2019-10-14] MEDS ORDERED: CRAN3875 PO (18:50)
[2019-10-14] MEDS ORDERED: ACET-868 PO (18:50)
[2019-10-14] MEDS ORDERED: BISA10SU11 RC (18:50)
[2019-10-14] MEDS ORDERED: CALC3.7S NS (18:50)
== END 2019-10-04 15:50 | DRG 871 ==
LOC: ER 11:13 → MERGE 11:13 → EDSEX 11:13 → ICU 15:23 → TELE 09-30 12:30 → MED 10-01 08:53
PROVIDERS: ADMIT Student in an Organized Health Care Education/Training Program; ATTEND Internal Medicine
PROC: 02HV33Z Insertion of Infusion Device into Superior Vena Cava, Percutaneous Approach (ICD-10-PCS; principal; 2019-09-27)
PROC: B548ZZA Ultrasonography of Superior Vena Cava, Guidance (ICD-10-PCS; 2019-09-27)
DX: A41.9 Sepsis, unspecified organism (principal); N17.0 Acute kidney failure with tubular necrosis; J69.0 Pneumonitis due to inhalation of food and vomit; R65.21 Severe sepsis with septic shock; I21.A1 Myocardial infarction type 2; E43 Unspecified severe protein-calorie malnutrition; G93.41 Metabolic encephalopathy; E87.0 Hyperosmolality and hypernatremia; E87.2 Acidosis; J98.11 Atelectasis; J90 Pleural effusion, not elsewhere classified; Z68.1 Body mass index [BMI] 19.9 or less, adult; N13.30 Unspecified hydronephrosis; D63.8 Anemia in other chronic diseases classified elsewhere; E03.9 Hypothyroidism, unspecified; E86.0 Dehydration; F41.9 Anxiety disorder, unspecified; I25.10 Atherosclerotic heart disease of native coronary artery without angina pectoris; E78.5 Hyperlipidemia, unspecified; Z79.899 Other long term (current) drug therapy; N13.9 Obstructive and reflux uropathy, unspecified; Z98.890 Other specified postprocedural states; F32.9 Major depressive disorder, single episode, unspecified; G62.9 Polyneuropathy, unspecified; E83.52 Hypercalcemia; I10 Essential (primary) hypertension; R13.10 Dysphagia, unspecified; N32.0 Bladder-neck obstruction; N40.1 Benign prostatic hyperplasia with lower urinary tract symptoms; M51.35 Other intervertebral disc degeneration, thoracolumbar region; K59.00 Constipation, unspecified; I45.10 Unspecified right bundle-branch block; E87.6 Hypokalemia; E86.1 Hypovolemia; D53.9 Nutritional anemia, unspecified; D47.3 Essential (hemorrhagic) thrombocythemia
CPT/HCPCS: 36415; 36569; 71045-TC; 76770-TC; 80048-TC; 80053-TC; 80061-TC; 80076-TC; 80202-TC; 81000-TC; 82272-TC; 82310-TC; 82533; 82550-TC; 82570-TC; 82728-TC; 83540-TC; 83605-TC; 83735-TC; 83970; 84100-TC; 84155; 84155-TC; 84165; 84300-TC; 84439-TC; 84443-TC; 84484-TC; 85025-TC; 85027-TC; 85730-TC; 87040-TC; 87081-TC; 87086-TC; 92521; 92526; 92611-TC; 93307-TC; 94799-TC; C1751; C1769; C9803-CS; G0378; J0692; J0696; J1644; J1720; J1940; J3370; J3480; J3490; J7030; J7042; J7050; J7060; J7070; U0003-CS